=== PATIENT | male | born 1935 | race Caucasian/White ===

== ENCOUNTER → 2016-08-05 | Outpatient (CLI) | payer MEDICARE ==
[~2016-08-05] MED LIST: ALN70T; ASP81CT; ASP81TEC PO; CA C1TAB26 PO; CLD600T; CLOP75TA; CYCL5TAB11 PO; D50KC; DABI150C2 PO; DOXY100C2 PO; ENAL2.5T PO; FURO20TA4; GLUC500T10 PO; KCL10CCR; KCL20TCR PO; LVT.025T PO; MTP25TSR; OMG1KC; OMG1KC PO; PNT40TEC PO; PRD20T PO; SIMV20TA3; UBID50CA; UNITHROID; VIT1TABL56; [UNRECOGNIZED DRUG - OTHER]
--- OUTSIDE RECORDS SUMMARY | 2016-08-05 10:15 | XMS REPORT | Continuity of Care Document ---
Author Author [facility] Organization [facility] Address Unknown Phone Unavailable Care Team Providers Care Traffic Circuit Engineer Name Role Phone JORGE COYLE MD PCP Insurance Providers Payer Name Policy Number Subscriber Name Relationship Wps Medicare [id number] NirmalThuy Connolly 18 Self / Same As Patient Blue [employer] [place] Supp [id number] Thuy Agrawal 18 Self / Same As Patient Advance Directives Directive Response Recorded Date/Time Advance Directives Yes 09/26/13 7:02pm Health Care Power of Manager Med Surg No 09/26/13 7:02pm Organ Donor No 09/26/13 7:02pm Problems Active Problems Medical Problem Onset Date Status Cervical radiculopathy Unknown Acute Medications Current Home Medications Medication Dose Units Route Directions Days/Qty Instructions Start Date Furosemide (Lasix) 20 Mg 06/18/09 Metoprolol Succinate (Metoprolol Er 25MG) 25 Mg 06/18/09 Simvastatin 20 Mg 06/18/09 [Yordan Men Multivit] 06/18/09 Levothyroxine Sodium (Levothroid) 25 Mcg 3 Each Oral Daily 07/29/11 Fish Oil 1,000 Mg 1,000 Mg Oral Daily 07/29/11 Enalapril Maleate 2.5 Mg 2.5 Mg Oral Daily 07/30/11 Potassium Chloride 20 Meq 1 Each Oral Daily 07/30/11 Aspirin 81 Mg 81 Mg Oral Daily 04/07/13 Doxycycline Hyclate (Vibramycin) 100 Mg 1 Each Oral Twice A Day 20 Past Home Medications Medication Directions Ordered Status [Unithroid] , 04/23/07 Discontinued Alendronate Sodium 70 Mg Tablet, 04/23/07 Discontinued Ergocalciferol 50,000 Unit Capsule, 04/23/07 Discontinued Calcium/Vitamin D 1 Tab Tablet, 04/23/07 Discontinued Aspirin 81 Mg Tablet, 04/23/07 Discontinued Clopidogrel Bisulfate 75 Mg Tablet, 06/18/09 Discontinued Potassium Chloride 10 Meq Capcr, 06/18/09 Discontinued Ubidecarenone 50 Mg Capsule, 06/18/09 Discontinued Glucosamine Hcl 500 Mg Tablet, 500 Mg Oral 07/29/11 Discontinued Pantoprazole Sodium 40 Mg Tablet.dr, 1 Tab Oral Daily 07/30/11 Discontinued Dabigatran Etexilate Mesylate 150 Mg Capsule, 150 Mg Oral Twice A Day Discontinued Cyclobenzaprine Hcl 5 Mg Tablet, 1 Each Oral Q8hr Prn 04/07/13 Discontinued Ca Cmb No.1/Vit D3/B-6/Fa/B12 1 Each Tablet, 1 Each Oral Daily 04/07/13 Discontinued Prednisone 20 Mg Tab, 20 Mg Oral Twice A Day 04/30/13 Discontinued Social History Social History Problem Response Recorded Date/Time Alcohol Use Denies Use 09/26/2013 7:02pm Recreational Drug Use No 09/26/2013 7:02pm Recent Foreign Travel No 03/13/2016 8:31am Hospital Discharge Instructions No hospital discharge instructions. Plan of Care Prescriptions See Medication Section Functional Status No functional status results. Allergies, Adverse Reactions, Alerts Allergen Type Severity Reaction Status Last Updated Sulfa (Sulfonamide Antibiotics) ([id number]) Allergy Unknown Active 21/12 Aspirin Allergy Unknown Active 04/28/07 Immunizations No immunization records. Vital Signs No known vital signs results. Results No known relevant diagnostic tests, laboratory data and/or discharge summary. Procedures No known history of procedures. Encounters Encounter Location Arrival/Admit Date Discharge/Depart Date Attending Provider Discharged Rec[facility]ring [facility] 04/24/16 8:12am 4:00pm CASSIDY LY MD
[2016-08-05 10:51] LABS: ALANINE AMINOTRANSFERASE 20 U/L (0-55); ALBUMIN 4.2 G/DL (3.2-4.5); ANION GAP 8 MMOL/L (5-14); ASPARTATE AMINO TRANSFERASE 22 U/L (5-34); BILIRUBIN,TOTAL 0.8 MG/DL (0.1-1.0); BLOOD UREA NITROGEN 21 MG/DL (7-18); BUN/CREATININE RATIO 20; CALCIUM 8.9 MG/DL (8.5-10.1); CARBON DIOXIDE 24 MMOL/L (21-32); CHLORIDE 108 MMOL/L (98-107); CHOLESTEROL 123 MG/DL (< 200); CREATININE SERUM 1.06 MG/DL (0.60-1.30); DIRECT LDL 74 MG/DL (1-129); GFR ESTIMATED > 60; GLUCOSE 98 MG/DL (70-105); SODIUM 140 MMOL/L (135-145); TOTAL PROTEIN 6.6 G/DL (6.4-8.2); TRIGLYCERIDES 69 MG/DL (<150); VLDL CHOLESTEROL 14 MG/DL (5-40)
[2016-08-05 11:10] LABS: THYROID STIMULATING HORMONE 4.25 UIU/ML (0.35-4.94)
== END ==
LOC: LAB 10:11
PROVIDERS: ATTEND Internal Medicine Cardiovascular Disease
DX: I25.10 Atherosclerotic heart disease of native coronary artery without angina pectoris (principal); I48.0 Paroxysmal atrial fibrillation; E78.2 Mixed hyperlipidemia; I10 Essential (primary) hypertension; M54.9 Dorsalgia, unspecified
CPT/HCPCS: 36415; 80053; 80061; 84443

== ENCOUNTER → 2017-04-29 | Outpatient (CLI) | payer MEDICARE | LOC: WOUNDCARE 09:21 | PROVIDERS: ATTEND Nurse Practitioner | DX: L97.222 Non-pressure chronic ulcer of left calf with fat layer exposed (principal); I87.312 Chronic venous hypertension (idiopathic) with ulcer of left lower extremity | CPT/HCPCS: 11042 ==

== ENCOUNTER → 2017-05-06 | Outpatient (CLI) | payer MEDICARE | LOC: WOUNDCARE 09:19 | PROVIDERS: ATTEND Nurse Practitioner | DX: L97.222 Non-pressure chronic ulcer of left calf with fat layer exposed (principal); I87.312 Chronic venous hypertension (idiopathic) with ulcer of left lower extremity | CPT/HCPCS: 11042 ==

== ENCOUNTER → 2017-05-13 | Outpatient (CLI) | payer MEDICARE | LOC: WOUNDCARE 08:59 | PROVIDERS: ATTEND Nurse Practitioner | DX: L97.222 Non-pressure chronic ulcer of left calf with fat layer exposed (principal); I87.312 Chronic venous hypertension (idiopathic) with ulcer of left lower extremity | CPT/HCPCS: 11042 ==

== ENCOUNTER → 2017-05-15 | Outpatient (CLI) | payer MEDICARE | LOC: WOUNDCARE 08:15 | PROVIDERS: ATTEND Internal Medicine | DX: I87.312 Chronic venous hypertension (idiopathic) with ulcer of left lower extremity (principal); L97.222 Non-pressure chronic ulcer of left calf with fat layer exposed | CPT/HCPCS: 29581 ==

== ENCOUNTER → 2017-05-20 | Outpatient (CLI) | payer MEDICARE | LOC: WOUNDCARE 09:14 | PROVIDERS: ATTEND Nurse Practitioner | DX: I87.312 Chronic venous hypertension (idiopathic) with ulcer of left lower extremity (principal); L97.222 Non-pressure chronic ulcer of left calf with fat layer exposed | CPT/HCPCS: 11042 ==

== ENCOUNTER → 2017-05-27 | Outpatient (CLI) | payer MEDICARE | LOC: WOUNDCARE 09:08 | PROVIDERS: ATTEND Nurse Practitioner | DX: L97.222 Non-pressure chronic ulcer of left calf with fat layer exposed (principal); I87.312 Chronic venous hypertension (idiopathic) with ulcer of left lower extremity | CPT/HCPCS: 11042; 87070; 87075; 87077; 87205 ==

== ENCOUNTER 2017-06-16 10:27 | Outpatient (RCR) | payer MEDICARE ==
[2017-06-03] MEDS: CATHETER FLUSH 10 ML SYR IV PRN ×2 (13:15→13:45)
[2017-06-03] MEDS: CEFEPIME 2 GM/NS 50 ML IVPB IV SCH ×2 (13:15)
[2017-06-03 14:15] VITALS: BP 133/68
[2017-06-04 11:45] VITALS: BP 134/67
[2017-06-04] MEDS: CEFEPIME 2 GM/NS 50 ML IVPB IV SCH ×2 (11:45)
[2017-06-04 12:22] VITALS: BP 134/67
[2017-06-05] MEDS: CEFEPIME 2 GM/NS 50 ML IVPB IV SCH ×2 (11:12)
[2017-06-05] MEDS: CATHETER FLUSH 10 ML SYR IV PRN (11:13)
[2017-06-05 11:45] VITALS: BP 121/60
--- NOTE | 2017-06-05 13:03 | Physician Query-Final Dx ---
Clinic Account Progress/Dx Physician Query: Please give diagnosis Date of Service Jun 05, 2017 at 10:57 ALLISON WESLEY Jun 05, 2017 13:03
[2017-06-06 10:33] VITALS: BP 132/64
[2017-06-06] MEDS: CEFEPIME 2 GM/NS 50 ML IVPB IV SCH ×2 (10:38)
[2017-06-07] MEDS: CATHETER FLUSH 10 ML SYR IV PRN ×2 (09:49→10:20)
[2017-06-07] MEDS: CEFEPIME 2 GM/NS 50 ML IVPB IV SCH ×2 (09:50)
[2017-06-07 10:30] VITALS: BP 133/63
[2017-06-08] MEDS: CATHETER FLUSH 10 ML SYR IV PRN ×2 (09:49→10:20)
[2017-06-08] MEDS: CEFEPIME 2 GM/NS 50 ML IVPB IV SCH ×2 (09:50)
[2017-06-08 10:30] VITALS: BP 103/68
[2017-06-09] MEDS: CEFEPIME 2 GM/NS 50 ML IVPB IV SCH ×2 (09:54)
[2017-06-09] MEDS: CATHETER FLUSH 10 ML SYR IV PRN (09:55)
[2017-06-09 09:58] VITALS: BP 111/74
[2017-06-09 10:23] VITALS: BP 111/74
[2017-06-10] MEDS: CATHETER FLUSH 10 ML SYR IV PRN ×2 (10:54→11:25)
[2017-06-10] MEDS: CEFEPIME 2 GM/NS 50 ML IVPB IV SCH ×2 (10:55)
[2017-06-10 11:30] VITALS: BP 132/69
[2017-06-11] MEDS: CEFEPIME 2 GM/NS 50 ML IVPB IV SCH ×2 (10:47)
[2017-06-11 10:50] VITALS: BP 124/79
[2017-06-11 11:17] VITALS: BP 124/79
[2017-06-12] MEDS: CEFEPIME 2 GM/NS 50 ML IVPB IV SCH ×2 (11:14)
[2017-06-12 11:16] VITALS: BP 124/81
[2017-06-13] MEDS: CATHETER FLUSH 10 ML SYR IV PRN (10:26)
[2017-06-13] MEDS: CEFEPIME 2 GM/NS 50 ML IVPB IV SCH ×2 (10:26)
[2017-06-13 10:57] VITALS: BP 132/66
[2017-06-14] MEDS: CATHETER FLUSH 10 ML SYR IV PRN ×2 (09:54→10:28)
[2017-06-14] MEDS: CEFEPIME 2 GM/NS 50 ML IVPB IV SCH ×2 (09:55)
[2017-06-14 10:29] VITALS: BP 104/59
[2017-06-15] MEDS: CATHETER FLUSH 10 ML SYR IV PRN ×2 (09:45→10:19)
[2017-06-15] MEDS: CEFEPIME 2 GM/NS 50 ML IVPB IV SCH ×2 (09:46)
[2017-06-15 10:20] VITALS: BP 118/64
[~2017-06-16] VITALS: Ht 188 cm; Wt 107.0 kg
[2017-06-16] MEDS: CATHETER FLUSH 10 ML SYR IV PRN (10:32)
[2017-06-16] MEDS: CEFEPIME 2 GM/NS 50 ML IVPB IV SCH ×2 (10:32)
[2017-06-16 11:10] VITALS: BP 121/70
== END 2017-09-01 | disposition home or self-care (01) ==
LOC: SDC 10:27
PROVIDERS: ATTEND Nurse Practitioner
DX: L97.222 Non-pressure chronic ulcer of left calf with fat layer exposed (principal); I87.312 Chronic venous hypertension (idiopathic) with ulcer of left lower extremity
CPT/HCPCS: 76937; 96365; 99211

== ENCOUNTER 2018-02-24 06:10 | Outpatient (CLI) | payer MEDICARE ==
[~2018-02-24] VITALS: Ht 188 cm; Wt 107.0 kg
[2018-02-24] MEDS ORDERED: POTA20TA15 PO (09:50)
[2018-02-24] MEDS ORDERED: ENAL2.5T PO (09:50)
[2018-02-24] MEDS ORDERED: MULT-517 PO (09:50)
[2018-02-24] MEDS ORDERED: LEVO100T7 PO (09:50)
[2018-02-24] MEDS ORDERED: METO-387 PO (09:50)
[2018-02-24] MEDS ORDERED: FURO20TA4 PO (09:50)
[2018-02-24] MEDS ORDERED: OMG1KC PO (09:50)
[2018-02-24] MEDS ORDERED: CHOL100045 PO (09:50)
[2018-02-24] MEDS ORDERED: ASPI-999 PO (09:50)
[2018-02-24] MEDS ORDERED: SIMV20TA3 PO (09:50)
== END 2018-02-24 09:52 | disposition home or self-care (01) ==
LOC: PREOP 06:10
PROVIDERS: ATTEND Surgery
DX: Z01.818 Encounter for other preprocedural examination (principal)

== ENCOUNTER 2018-02-25 11:13 | Day surgery (SDC) | payer MEDICARE ==
[~2018-02-25] VITALS: Ht 188 cm; Wt 107.0 kg
[~2018-02-25 11:13] MED LIST changes: +ASPI-999 PO; +CHOL100045 PO; +FURO20TA4 PO; +LEVO100T7 PO; +METO-387 PO; +MULT-517 PO; +POTA20TA15 PO; +SIMV20TA3 PO
--- NOTE | 2018-02-25 11:53 | Conscious Sedation/ASA ---
Conscious Sedation Pre-Proced Time Reviewed: 11:40 ASA Class: 2 Airway Mallampati Classification: ([place] appropriate class) I. II. III, IV Lungs Heart ASA score ASA 1: a normal healthy patient ASA 2: a patient with a mild systemic disease (mid diabetes, controlled hypertension, obesity ASA 3: a patient with a severe systemic disease that limits activity (angina , COPD, prior Myocardial infarction) ASA 4: a patient with an incapacitating disease that is a constant threat to life (CHF, renal failure) ASA 5: a moribund patient not expected to survive 24 hrs. (ruptured aneurysm) ASA 6: a declared brain patient whose organs are being harvested. For emergent operations, add the letter E after the classification Grade 2 Sedation Plan: Analgesia, Amnesia, Plan communicated to team members, Discussed options with patient/fam, Discussed risks with patient/fam Note The patient is an appropriate candidate to undergo the planned procedure, sedation, and anesthesia. The patient immediately re-assessed prior to indication. DAVID FRANCES MD Feb 25, 2018 11:53 am
--- NOTE | 2018-02-25 11:54 | Progress Note-Pre Operative ---
Pre-Operative Progress Note H&P Reviewed The H&P was reviewed, patient examined and no changes noted. Date Seen by Provider: Feb 25, 2018 Time Seen by Provider: 11:40 Date H&P Reviewed: Feb 25, 2018 Time H&P Reviewed: 11:40 Pre-Operative Diagnosis: hx polyp DAVID FRANCES MD Feb 25, 2018 11:54 am
[2018-02-25 11:55] VITALS: BP 115/71
[2018-02-25] MEDS ORDERED: NS IV 500 ML 500 ML ONE ×2 (11:59→13:54)
[2018-02-25] MEDS ORDERED: ONDANSETRON 4 MG/2 ML (SDV) Z0FRAN IV PRN (12:00)
[2018-02-25] MEDS: NS IV 500 ML 500 ML IV PRN ×2 (12:00→13:55)
[2018-02-25] MEDS ORDERED: ACETAMINOPHEN 325 MG TABLET PO PRN (12:00)
[2018-02-25] MEDS ORDERED: HYDROcodone/APAP 5 MG/325 MG (LORTAB) TAB PO PRN (12:00)
[2018-02-25] MEDS ORDERED: morphine INJ 10 MG/ML 1ML (SYR OR VIAL) IV PRN (12:00)
[2018-02-25] MEDS ORDERED: fentaNYL INJECTION 100 MCG/2 ML AMP IVP ONE (12:15)
[2018-02-25] MEDS ORDERED: MIDAZOLAM 2 MG/2 ML (VERSED) VIAL IVP ONE (12:15)
[2018-02-25] MEDS ORDERED: fentaNYL INJECTION 100 MCG/2 ML AMP ONE ×2 (13:21)
[2018-02-25] MEDS ORDERED: LIDOCAINE JELLY 2% (XYLOCAINE) 5 ML TUBE ONE (13:21)
--- NOTE | 2018-02-25 14:11 | Progress Note-Post Operative ---
Post-Operative Progess Note Surgeon (s)/Whipper (s) Surgeon DAVID FRANCES MD Whipper: none Pre-Operative Diagnosis hx polyp Post-Operative Diagnosis chronic stage 2 ext and int hemorrhoids, mild sigmoid diverticulosis. Procedure & Operative Findings Date of Procedure 02/25/18 Procedure Performed/Findings Colonoscopy. Anesthesia Type CS Estimated Blood Loss Estimated blood loss (mL): minimal Specimens/Packing Specimens Removed none DAVID FRANCES MD Feb 25, 2018 2:11 pm
--- NOTE | 2018-02-25 14:12 | Discharge Inst-Surgical ---
D/C Lap Instructions-JUAN DANIEL Follow Up 10 years. Activity as tolerated High Fiber Diet 25g or more per day Avoid Alcohol, Caffeine, Spicy [place] and Acid foods. Drink 64 fluid oz or more of fluids per day. Symptoms to Report: Fever over 101 degree F, Nausea/Vomiting If any problems/questions: Contact your physician or go to Emergency Room DAVID FRANCES MD Feb 25, 2018 2:12 pm
[2018-02-25] MEDS ORDERED: LIDOCAINE JELLY 2% (XYLOCAINE) 5 ML TUBE TOP ONE (14:30)
[2018-02-25 14:35] VITALS: BP 103/55
[2018-02-25 15:05] VITALS: BP 114/66
[2018-02-25 15:35] VITALS: BP 114/66
--- NOTE | 2018-02-25 15:54 | OPERATIVE REPORT ---
DATE OF SERVICE: 02/25/2018 ATTENDING PRIMARY CARE PHYSICIAN: Dr. Garcia. PREOPERATIVE DIAGNOSIS: History of colon polyp. POSTOPERATIVE DIAGNOSES: Chronic stage II external and internal hemorrhoids, moderate sigmoid diverticulosis. PROCEDURE: Colonoscopy. SURGEON: David Frances MD ANESTHESIA: Conscious sedation. ESTIMATED BLOOD LOSS: Minimal. FINDINGS: Chronic stage II external and internal hemorrhoids, not actively edematous nor inflamed and no bleeding. Prostate gland was palpable and appeared normal. There was a moderate sigmoid diverticulosis with no mucosal inflammatory change to indicate any active diverticulitis. The remainder of the colon was normal. There were no polyps identified. DISPOSITION: The patient tolerated the procedure well. INDICATIONS: The patient is an 82-year-old male in need of followup colonoscopy. He has had 3 colonoscopies in the past with his last one done approximately 5 years ago. He reports that that one was normal; however, in 2008, he did have a polyp identified, removed and found to be an adenomatous benign polyp. He states that he is doing well and does not report any major issues with diarrhea nor constipation as well as no red blood per rectum nor any dark tarry stools. He does not report any family history of colon cancer. DESCRIPTION OF PROCEDURE: The patient was brought the endoscopy suite, laid in the left lateral decubitus position. After adequate IV pain and sedative medications and conscious sedation anesthesia, a digital rectal examination was performed. Chronic stage II external and internal hemorrhoids were identified, which were not actively edematous nor inflamed and no bleeding. Normal sphincter tone felt and there were no palpable masses. Prostate gland was palpable and appeared normal. The endoscope was then intubated to the anus and rectum gently insufflated. The endoscope was then advanced to the valves of [place] of the rectum with no polyps or any neoplasms identified. The endoscope was then advanced to the sigmoid colon where a moderate sigmoid diverticulosis identified. There were no mucosal inflammatory changes to indicate any active diverticulitis. The endoscope was then advanced to the remainder of the descending, transverse and ascending colon to the cecum. These segments were normal. There were no polyps or any neoplasms identified throughout the colon or rectum. The endoscope was then slowly withdrawn with taking a second look and suctioning of residual air with no additional findings. The patient tolerated the procedure well. We will recommend a high fiber diet with at least 30 grams of fiber per day as well as copious amounts of water to promote soft stools on a daily basis. He does not need another colonoscopy for another 10 years. Job ID: [id number] DocumentID: [id number] Dictated Date: 02/25/2018 14:04:51 Papier Mache' Molder Date: 02/25/2018 15:53:13 Dictated By: DAVID FRANCES MD
== END 2018-02-25 15:35 | disposition home or self-care (01) ==
LOC: ENDO 11:13
PROVIDERS: ATTEND Surgery
DX: Z12.11 Encounter for screening for malignant neoplasm of colon (principal); K57.30 Diverticulosis of large intestine without perforation or abscess without bleeding; K64.1 Second degree hemorrhoids; Z86.010 Personal history of colon polyps; I25.10 Atherosclerotic heart disease of native coronary artery without angina pectoris; I73.9 Peripheral vascular disease, unspecified; I87.2 Venous insufficiency (chronic) (peripheral); I10 Essential (primary) hypertension; E78.5 Hyperlipidemia, unspecified; E03.9 Hypothyroidism, unspecified; N40.0 Benign prostatic hyperplasia without lower urinary tract symptoms; M85.80 Other specified disorders of bone density and structure, unspecified site; Z79.82 Long term (current) use of aspirin; Z79.899 Other long term (current) drug therapy

== ENCOUNTER → 2018-10-23 | Outpatient (CLI) | payer MEDICARE | LOC: CARD 09:42 | PROVIDERS: ATTEND Internal Medicine Cardiovascular Disease | DX: I25.10 Atherosclerotic heart disease of native coronary artery without angina pectoris (principal); I77.9 Disorder of arteries and arterioles, unspecified; I10 Essential (primary) hypertension; E78.5 Hyperlipidemia, unspecified; I48.0 Paroxysmal atrial fibrillation; I08.0 Rheumatic disorders of both mitral and aortic valves | CPT/HCPCS: 93306 ==

== ENCOUNTER 2020-07-25 10:23 | Emergency (ER) | payer MEDICARE ==
[~2020-07-25] VITALS: Ht 187.9 cm; Wt 105.9 kg
[~2020-07-25 10:23] MED LIST changes: +ENLP2.5T PO; -METO-387 PO; +MTP25TSR PO; +SIMV20TA26 PO; -SIMV20TA3 PO
--- NOTE | 2020-07-25 11:56 | ED Integumentary General ---
General Chief Complaint: Skin/Wound Problems Stated Complaint: LEG WOUND, DIARRHEA, N/V Nursing Triage Note: AMB TO ED WITH SON REPORTS HAS HAD A LEG WOUND THAT HAS TREATED BY DR AT [facility] NOW CONCERN THAT HAS AREA ON ANKLE HAS BEEN CEFEPIME 2 GRAMS BIS FOR LAST 2 WEEK. STARTING TO HAVE DIARRHEA. Source: patient Exam Limitations: no limitations History of Present Illness Date Seen by Provider: Jul 25, 2020 Time Seen by Provider: 11:53 Initial Comments To ER by private vehicle accompanied by son with reports of nausea vomiting diarrhea. He has a chronic wound on the right lower extremity for which he is seeing wound care at [facility] in [place]. 1 of these wounds is infected and for that reason he has a PICC line and is receiving cefepime twice a day. Over the past few days he has developed nausea vomiting and very loose stools. Timing/Duration: constant Severity: moderate Possible Cause: no cause identified Associated Symptoms: denies symptoms Allergies and Home Medications Allergies Coded Allergies: Sulfa (Sulfonamide Antibiotics) (Verified Allergy, Unknown, 02/24/18) aspirin (Verified Allergy, Unknown, 02/24/18) Home Medications Aspirin 81 Mg Tab.chew, 81 MG PO DAILY, (Reported) Cholecalciferol (Vitamin D3) 1,000 Unit Tablet, 1,000 UNIT PO DAILY, (Reported) Enalapril Maleate 2.5 Mg Tablet, 2.5 MG PO DAILY, (Reported) Furosemide 20 Mg Tablet, 20 MG PO DAILY, (Reported) Levothyroxine Sodium 100 Mcg Tablet, 100 MCG PO DAILY, (Reported) Metoprolol Succinate 25 Mg Tab.er.24h, 25 MG PO DAILY, (Reported) Multivitamin 1 Each Tablet, 1 EACH PO DAILY, (Reported) [place] 3 Polyunsat Fatty Acids 1,000 Mg Cap, 1,000 MG PO DAILY, (Reported) Potassium Chloride 20 Meq Tab.er.prt, 20 MEQ PO DAILY, (Reported) Simvastatin 20 Mg Tablet, 20 MG PO DAILY, (Reported) Patient Home Medication List Home Medication List Reviewed: Yes Review of Systems Review of Systems Constitutional: see HPI; No chills, No fever EENTM: see HPI Respiratory: no symptoms reported Cardiovascular: no symptoms reported Gastrointestinal: abdominal pain, diarrhea, nausea, vomiting Genitourinary: no symptoms reported Musculoskeletal: no symptoms reported Skin: no symptoms reported Psychiatric/Neurological: No Symptoms Reported Endocrine: No Symptoms Reported Past Prwhgob-Ptxyen-Umuglk Hx Patient Social History Alcohol Use: Denies Use Smoking Status: Never a Smoker Former Smoker, Quit: Feb 24, 1965 Recent Infectious Disease Expo: No Recent Hopitalizations: No Immunizations Up To Date Tetanus Booster (TDap): Unknown PED Vaccines UTD: No Date of Pneumonia Vaccine: Apr 23, 2007 Date of Influenza Vaccine: Mar 24, 2017 Seasonal Allergies Seasonal Allergies: No Past Medical History Surgeries: Yes (BILAT INGUINAL HERNIA REPAIRS,X3 HEART CATHS, NON- INTERVENTIONAL) Appendectomy Respiratory: No Cardiac: Yes High Cholesterol, Hypertension, Peripheral Vascular Neurological: No Reproductive Disorders: No Sexually Transmitted Disease: No HIV/AIDS: No Gastrointestinal: No Musculoskeletal: No Endocrine: Yes Hypothyroidsim Loss of Vision: Bilateral Cancer: No Psychosocial: No Integumentary: No Recent Skin Changes Blood Disorders: No Adverse Reaction/Blood Tranf: No (N/A) Physical Exam Vital Signs Vital Signs - First Documented 07/25/20 10:30 Temp 36.4 Pulse 74 Resp 18 B/P (MAP) 119/67 (84) Pulse Ox 97 O2 Delivery Room Air Capillary Refill : Less Than 3 Seconds General Appearance: WD/WN, no apparent distress HEENT: PERRL/EOMI, normal ENT inspection Neck: non-tender, full range of motion Respiratory: no respiratory distress, no accessory muscle use Gastrointestinal: normal bowel sounds, soft, tenderness (Right-sided) Neurologic/Psychiatric: alert, normal mood/affect, oriented x 3 Skin: normal color, warm/dry Comments Right leg is wrapped in an Unna boot. He states this dressing is changed about once a week he states this dressing is changed and this 1 has been on for nearly a week. 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 No open wounds or open areas. This was covered with gauze and Cob[place]. Progress/Results/Core Measures Results/Orders Lab Results Laboratory Tests Test 07/25/20 11:52 07/25/20 12:03 Range/Units Urine Color YELLOW Urine Clarity CLEAR Urine pH 6.0 5-9 Urine Specific [place] 1.015 L 1.016-1.022 Urine Protein 1+ H NEGATIVE Urine Glucose (UA) NEGATIVE NEGATIVE Urine Ketones NEGATIVE NEGATIVE Urine Nitrite NEGATIVE NEGATIVE Urine Bilirubin NEGATIVE NEGATIVE Urine Urobilinogen 0.2 < = 1.0 MG/DL Urine Leukocyte Esterase NEGATIVE NEGATIVE Urine RBC (Auto) 2+ H NEGATIVE Urine RBC 2-5 H /HPF Urine WBC 0-2 /HPF Urine Squamous Epithelial Cells 0-2 /HPF Urine Crystals PRESENT H /LPF Urine Amorphous Sediment FEW [place] URATES H /LPF Urine Bacteria NEGATIVE /HPF Urine Casts PRESENT /LPF Urine Hyaline Casts 0-2 H /LPF Urine Mucus NEGATIVE /LPF Urine Culture Indicated NO White Blood Count 17.1 H 4.3-11.0 10^3/uL Red Blood Count 4.85 4.30-5.52 10^6/uL Hemoglobin 14.5 13.3-17.7 g/dL Hematocrit 43 40-54 % Mean Corpuscular Volume 88 80-99 fL Mean Corpuscular Hemoglobin 30 25-34 pg Mean Corpuscular Hemoglobin Concent 34 32-36 g/dL Red Cell Distribution Width 13.2 10.0-14.5 % Platelet Count 160 130-400 10^3/uL Mean Platelet Volume 9.6 9.0-12.2 fL Immature Granulocyte % (Auto) 1 % Neutrophils (%) (Auto) 77 H 42-75 % Lymphocytes (%) (Auto) 14 12-44 % Monocytes (%) (Auto) 6 0-12 % Eosinophils (%) (Auto) 2 0-10 % Basophils (%) (Auto) 0 0-10 % Neutrophils # (Auto) 13.2 H 1.8-7.8 10^3/uL Lymphocytes # (Auto) 2.4 1.0-4.0 10^3/uL Monocytes # (Auto) 1.0 0.0-1.0 10^3/uL Eosinophils # (Auto) 0.4 H 0.0-0.3 10^3/uL Basophils # (Auto) 0.1 0.0-0.1 10^3/uL Immature Granulocyte # (Auto) 0.1 0.0-0.1 10^3/uL Neutrophils % (Manual) 79 % Lymphocytes % (Manual) 10 % Monocytes % (Manual) 4 % Eosinophils % (Manual) 3 % Basophils % (Manual) 1 % Band Neutrophils 3 % Blood Morphology Comment NORMAL Sodium Level 132 L 135-145 MMOL/L Potassium Level 4.3 3.6-5.0 MMOL/L Chloride Level 101 98-107 MMOL/L Carbon Dioxide Level 18 L 21-32 MMOL/L Anion Gap 13 5-14 MMOL/L Blood Urea Nitrogen 24 H 7-18 MG/DL Creatinine 1.21 0.60-1.30 MG/DL Estimat Glomerular Filtration Rate 57 BUN/Creatinine Ratio 20 Glucose Level 117 H 70-105 MG/DL Calcium Level 8.5 8.5-10.1 MG/DL Corrected Calcium 8.9 8.5-10.1 MG/DL Total Bilirubin 0.8 0.1-1.0 MG/DL Aspartate Amino Transf (AST/SGOT) 21 5-34 U/L Alanine Aminotransferase (ALT/SGPT) 18 0-55 U/L Alkaline Phosphatase 58 40-136 U/L Total Protein 6.5 6.4-8.2 GM/DL Albumin 3.5 3.2-4.5 GM/DL Micro Results Microbiology 07/25/20 C. difficile GDH Antigen & Toxins - Final, Complete My Orders Orders - CHANDLER DELGADO APRN C Difficile Ag + Toxin A/B. (07/25/20 11:48) Ua Culture If Indicated (07/25/20 11:48) Cbc With Automated Diff (07/25/20 11:48) Comprehensive Metabolic Panel (07/25/20 11:48) Ed Iv/Invasive Line Start (07/25/20 11:48) Ct Abdomen/Pelvis Wo (07/25/20 11:48) Hyoscyamine Sl Tablet (Levsin Sl Tablet) (07/25/20 12:00) Ondansetron Injection (Zofran Injectio (07/25/20 12:00) Lactated Ringers (Lr 1000 Ml Iv Solution (07/25/20 12:00) Manual Differential (07/25/20 12:03) Fentanyl Injection (Sublimaze Injection (07/25/20 13:00) Medications Given in ED Current Medications Medications Dose Ordered Sig/[place] Route Start Time Stop Time Status Last Admin Dose Admin Fentanyl Citrate 50 mcg ONCE ONCE IVP 07/25/20 13:00 07/25/20 13:01 DC 07/25/20 13:01 50 MCG Hyoscyamine Sulfate 0.125 mg ONCE ONCE PO 07/25/20 12:00 07/25/20 12:01 DC 07/25/20 12:12 0.125 MG Ondansetron HCl 8 mg ONCE ONCE IVP 07/25/20 12:00 07/25/20 12:01 DC 07/25/20 12:14 8 MG Vital Signs/I&O 07/25/20 10:30 Temp 36.4 Pulse 74 Resp 18 B/P (MAP) 119/67 (84) Pulse Ox 97 O2 Delivery Room Air Blood Pressure Mean: 84 Departure Communication (Admissions) 1230-Spoke with Dr. Wu, given the absence of sepsis recommends outpatient treatment with oral vancomycin. I discussed the plan with the patient and he would also prefer outpatient treatment. [facility] does not have the 125 mg oral vancomycin nor does [facility]. I called [facility] and they do. I called in vancomycin 125 4 times daily #40 and Zofran ODT 8 mg as needed nausea vomiting #30. Given that his ulcer infection is confined to a silver dollar sized area on his leg and he is without systemic symptoms I think we should stop the IV cefepime. He states he only has about 3 days left. Impression Primary Impression: C. difficile colitis Additional Impression: Nausea & vomiting Disposition: HOME, SELF-CARE Condition: Stable Departure-Patient Inst. Decision time for Depature: 13:13 Referrals: JORGE COYLE MD (PCP/Family) Primary Care Physician Patient Instructions: Clostridioides difficile (DC), Colitis (DC) Add. Discharge Instructions: 1. Drink plenty of liquid. Pedialyte or water are good choices. Start with a mild diet such as bananas rice applesauce and toast. Return to ER for any fevers worsening pain or other concerns. Take the antibiotic every 6 hours for 10 days as directed. Stop the cefepime IV infusions. Follow-up with your doctor about CT scan which shows some mild bladder wall thickening. They may wish to refer you to urology for a bladder scope. I called your antibiotics into [facility] because neither [facility] no [facility] had the oral vancomycin All discharge instructions reviewed with patient and/or family. Voiced understanding. Copy Copies To 1: JORGE COYLE MD, PETER J APRN Jul 25, 2020 11:56
[2020-07-25 11:58] LABS: BILIRUBIN,URINE NEGATIVE (NEGATIVE); CLARITY,URINE CLEAR; COLOR,URINE YELLOW; GLUCOSE, URINE (UA) NEGATIVE (NEGATIVE); KETONES,URINE NEGATIVE (NEGATIVE); LEUKOCYTE ESTERASE ,URINE NEGATIVE (NEGATIVE); NITRITE,URINE NEGATIVE (NEGATIVE); PROTEIN,URINE 1+ (NEGATIVE)
[2020-07-25] MEDS ORDERED: LACTATED RINGERS 1,000 ML IV SCH (12:00)
[2020-07-25] MEDS ORDERED: ONDANSETRON 4 MG/2 ML (SDV) Z0FRAN IVP ONE (12:00)
[2020-07-25] MEDS ORDERED: HYOSCYAMINE 0.125 MG (LEVSIN) TAB PO ONE (12:00)
[2020-07-25 12:09] LABS: BASOPHILS # (AUTO) 0.1 10^3/uL (0.0-0.1); BASOPHILS % (AUTO) 0 % (0-10); EOSINOPHILS # (AUTO) 0.4 10^3/uL (0.0-0.3); EOSINOPHILS % (AUTO) 2 % (0-10); HEMATOCRIT 43 % (40-54); HEMOGLOBIN 14.5 g/dL (13.3-17.7); LYMPHOCYTES # (AUTO) 2.4 10^3/uL (1.0-4.0); LYMPHOCYTES % (AUTO) 14 % (12-44); MEAN CORPUSCULAR HEMOGLOBIN 30 pg (25-34); MEAN CORPUSCULAR HGB CONC 34 g/dL (32-36); MEAN CORPUSCULAR VOLUME 88 fL (80-99); MEAN PLATELET VOLUME 9.6 fL (9.0-12.2); MONOCYTES % (AUTO) 6 % (0-12); NEUTROPHILS # (AUTO) 13.2 10^3/uL (1.8-7.8); NEUTROPHILS % (AUTO) 77 % (42-75); PLATELET COUNT 160 10^3/uL (130-400); WHITE BLOOD COUNT 17.1 10^3/uL (4.3-11.0)
[2020-07-25 12:22] LABS: ALBUMIN 3.5 GM/DL (3.2-4.5); POTASSIUM 4.3 MMOL/L (3.6-5.0)
[2020-07-25 12:23] LABS: CALCIUM 8.5 MG/DL (8.5-10.1)
[2020-07-25 12:23] LABS: WBC,URINE 0-2 /HPF
[2020-07-25 12:24] LABS: TOTAL PROTEIN 6.5 GM/DL (6.4-8.2)
[2020-07-25 12:24] LABS: AMORPHOUS SEDIMENT,UR FEW AMOR URATES /LPF; BACTERIA,URINE NEGATIVE /HPF; HYALINE CASTS, URINE 0-2 /LPF; SQUAMOUS EPITHELIAL CELL,UR 0-2 /HPF
[2020-07-25 12:26] LABS: BILIRUBIN,TOTAL 0.8 MG/DL (0.1-1.0)
[2020-07-25 12:28] LABS: CREATININE SERUM 1.21 MG/DL (0.60-1.30)
[2020-07-25 12:30] LABS: BAND NEUTROPHILS 3 %; BASOPHILS % (MANUAL) 1 %; EOSINOPHILS % (MANUAL) 3 %; LYMPHOCYTES % (MANUAL) 10 %; MONOCYTES % (MANUAL) 4 %; NEUTROPHILS % (MANUAL) 79 %; RBC MORPH NORMAL
--- NOTE | 2020-07-25 12:42 | Diagnostic Imaging Report ---
EXAMINATION: CT Abdomen Pelvis without contrast. TECHNIQUE: Multiple contiguous axial images were obtained through the abdomen and pelvis without the use of intravenous contrast. All CT scans use one or more of the following dose optimizing techniques: automated exposure control, MA and/or KvP adjustment based on a patient size and exam type, or iterative reconstruction. HISTORY: Right-sided abdominal pain. COMPARISON: None available. FINDINGS: Lung bases: The lung bases are clear. Solid organs: The liver is normal. The gallbladder is normal. There is no biliary ductal dilation. Pancreas is normal. Spleen is normal. Adrenal glands are normal. The kidneys are normal without visualized calculus or hydronephrosis. Bowel: The stomach and small bowel are normal without obstruction. A duodenal diverticulum is present. There are a few colonic diverticula. There is diffuse wall thickening and surrounding inflammatory stranding of the colon. No findings of acute appendicitis. Peritoneum: There is no intraperitoneal free fluid or free air. No suspicious lymphadenopathy. Vasculature: Normal without aneurysm. Musculoskeletal: Degenerative changes of the spine without suspicious osseous lesion or compression fracture. Pelvis: The prostate gland is enlarged. Diffuse bladder wall thickening. IMPRESSION: 1. Diffuse wall thickening and inflammatory stranding of the colon. This finding is concerning for infectious or inflammatory pancolitis. C. difficile infection could have this appearance given the history of antibiotics. 2. Diffuse bladder wall thickening. Recommend correlation with urinalysis. Dictated by: Dictated on workstation # [id number]
[2020-07-25] MEDS ORDERED: fentaNYL INJECTION 100 MCG/2 ML AMP IVP ONE (13:00)
[2020-07-25 14:06] VITALS: BP 129/71
== END 2020-07-25 14:06 | disposition home or self-care (01) ==
LOC: EDUNIT# 10:23 → ER 10:26
DX: A04.72 Enterocolitis due to Clostridium difficile, not specified as recurrent (principal); I10 Essential (primary) hypertension; E78.00 Pure hypercholesterolemia, unspecified; E03.9 Hypothyroidism, unspecified; Z79.82 Long term (current) use of aspirin; Z79.890 Hormone replacement therapy; Z88.2 Allergy status to sulfonamides; Z88.6 Allergy status to analgesic agent
CPT/HCPCS: 36415; 74176; 80053; 81000; 85007; 85027; 87324; 87449

== ENCOUNTER 2020-09-11 10:42 | Emergency (ER) | payer MEDICARE ==
[~2020-09-11] VITALS: Ht 185 cm; Wt 101.0 kg
--- NOTE | 2020-09-11 11:01 | ED Fall/Injury ---
General Chief Complaint: Trauma-Non Activation Stated Complaint: LOWER BACK PAIN-FELL Nursing Triage Note: PT AMB TO ROOM 6 PT CO OF FALL ON BACK FRIDAY EVENING HAS PAIN MID TO LOW BACK, PT USING CANE TO WALK. PT DENIES NUMBNESS OR TINGLING AT THIS X.DENIES ANY OTHER INJURIES FROM FALL Source: patient Exam Limitations: no limitations History of Present Illness Date Seen by Provider: Sep 11, 2020 Time Seen by Provider: 10:53 Initial Comments Here with report of fall 2 days ago landing on his buttocks and complaining of mid to low back pain. He is able to ambulate with the assistance of a walking cane. Denies bowel or bladder incontinence, numbness between his legs or weakness. Pain is across both sides of the lower back and begins at the low thoracic region and worsens into the upper lumbar region. Denies hip pain. Denies hitting head on fall. He is not on blood thinners. Denies headache, vision or balance problems or weakness. Pain is better with Naprosyn and heating pads. Occurred: other (2 days ago) Severity: moderate Injuries/Pain Location: back Context: tripped Loss of Consciousness: no loss of consciousness Modifying Factors: Improves With Immobilization; Worse With Movement; Improves With Pain Medication Associated Symptoms (Fall): No Abdominal Pain, No Dizziness, No Headache, No Lightheadedness; Muscle Spasms; No Nausea/Vomiting, No Neck Pain, No Vision Changes Allergies and Home Medications Allergies Coded Allergies: Sulfa (Sulfonamide Antibiotics) (Verified Allergy, Unknown, 02/24/18) aspirin (Verified Allergy, Unknown, 02/24/18) Home Medications Aspirin 81 Mg Tab.chew, 81 MG PO DAILY, (Reported) Cholecalciferol (Vitamin D3) 1,000 Unit Tablet, 1,000 UNIT PO DAILY, (Reported) Enalapril Maleate 2.5 Mg Tablet, 2.5 MG PO DAILY, (Reported) Furosemide 20 Mg Tablet, 20 MG PO DAILY, (Reported) Levothyroxine Sodium 100 Mcg Tablet, 100 MCG PO DAILY, (Reported) Metoprolol Succinate 25 Mg Tab.er.24h, 25 MG PO DAILY, (Reported) Multivitamin 1 Each Tablet, 1 EACH PO DAILY, (Reported) [place] 3 Polyunsat Fatty Acids 1,000 Mg Cap, 1,000 MG PO DAILY, (Reported) Potassium Chloride 20 Meq Tab.er.prt, 20 MEQ PO DAILY, (Reported) Simvastatin 20 Mg Tablet, 20 MG PO DAILY, (Reported) Patient Home Medication List Home Medication List Reviewed: Yes Review of Systems Review of Systems Constitutional: see HPI; No chills, No fever Eyes: No Symptoms Reported Ears, Nose, Mouth, Throat: no symptoms reported Respiratory: No cough, No short of breath Cardiovascular: no symptoms reported Gastrointestinal: no symptoms reported Genitourinary: no symptoms reported Musculoskeletal: back pain, joint pain, muscle pain, muscle stiffness; No muscle weakness, No neck pain Past Qczslgq-Xclfui-Mbfwcz Hx Past Med/Social Hx: Reviewed Nursing Past Med/Soc Hx Patient Social History Alcohol Use: Denies Use Smoking Status: Former Smoker Former Smoker, Quit: Feb 24, 1965 Recent Infectious Disease Expo: No Recent Hopitalizations: No Immunizations Up To Date Tetanus Booster (TDap): Unknown PED Vaccines UTD: No Date of Pneumonia Vaccine: Apr 23, 2007 Date of Influenza Vaccine: Mar 24, 2017 Seasonal Allergies Seasonal Allergies: No Past Medical History Surgeries: Yes (BILAT INGUINAL HERNIA REPAIRS,X3 HEART CATHS, NON- INTERVENTIONAL) Appendectomy Respiratory: No Cardiac: Yes High Cholesterol, Hypertension, Peripheral Vascular Neurological: No Reproductive Disorders: No Sexually Transmitted Disease: No HIV/AIDS: No Gastrointestinal: No Musculoskeletal: No Endocrine: Yes Hypothyroidsim Loss of Vision: Bilateral Cancer: No Psychosocial: No Integumentary: No Recent Skin Changes Blood Disorders: No Adverse Reaction/Blood Tranf: No (N/A) Family Medical History Reviewed Nursing Family Hx Physical Exam Vital Signs Vital Signs - First Documented 09/11/20 10:45 Temp 36.2 Pulse 75 Resp 18 B/P (MAP) 158/64 (95) Pulse Ox 98 Capillary Refill : Less Than 3 Seconds Height, Weight, BMI Height: 6'2.00" Weight: 236lbs. 0.0oz. [id number]; 29.00 BMI Method:Stated General Appearance: WD/WN, no apparent distress HEENT: PERRL/EOMI, TMs normal, pharynx normal Neck: full range of motion, supple Cardiovascular: regular rate, rhythm, no murmur Respiratory: lungs clear, normal breath sounds Gastrointestinal: non tender, soft Back: muscle spasm (Paraspinous low thoracic and lumbar region), vertebral tenderness (Low thoracic and upper lumbar region) Neurologic/Psychiatric: alert, oriented x 3; No motor weakness, No sensory deficit Skin: normal color, warm/dry [place] Coma Score Best Eye Response: (4) Open Spontaneously Best Verbal Response: (5) Oriented Best Motor Response: (6) Obeys Commands Progress/Results/Core Measures Results/Orders My Orders Orders - RAMIN DAVIS MD Ct Thoracic/Lumbar Spine Wo (09/11/20 10:59) Hydrocodone/Apap 5/325 Tablet (Lortab 5 (09/11/20 12:15) Orphenadrine Inj (Ed Only) (Norflex Inje (09/11/20 12:03) Medications Given in ED Current Medications Medications Dose Ordered Sig/[place] Route Start Time Stop Time Status Last Admin Dose Admin Acetaminophen/ Hydrocodone Bitart 1 ea ONCE ONCE PO 09/11/20 12:15 09/11/20 12:16 DC 09/11/20 12:10 1 EA Vital Signs/I&O 09/11/20 10:45 Temp 36.2 Pulse 75 Resp 18 B/P (MAP) 158/64 (95) Pulse Ox 98 Blood Pressure Mean: 95 Progress Progress Note : Progress Note Seen and evaluated. CT of the thoracic and lumbar region of spine. We did discuss CT of the head. He has declined at this point. He has normal pupil and TM exam and no obvious significant contusion, abrasion or swelling to the head. Patient denies headache. We will forego CT scan per his decision at this point. Monitor patient. 1232: CT negative for acute bony concerns. Patient had worse pain after returning from CT after difficulty with moving him off the table and he states he was pulled inappropriately. We did give Norflex 60 mg IM and hydro codone 5/325 1 tab p.o. Discharged home with return precautions. Patient verbalized understanding of instructions and agreement with plan. Diagnostic Imaging Diagonstic Imaging: CT Plain Films/CT/US/NM/MRI: other Comments [facility], [place] NAME: THUY AGRAWAL [facility] REC#: [id number] PT STATUS: REG ER : 1935 PHYSICIAN: RAMIN DAVIS MD ADMIT DATE: 09/11/20/ER Draft Date of Exam:09/11/20 CT THORACIC/LUMBAR SPINE WO PROCEDURE: CT thoracic and lumbar spine without contrast. TECHNIQUE: Multiple contiguous axial images were obtained through the thoracic and lumbar spine without the use of intravenous contrast. Sagittal and coronal reformations were then performed.All CT scans use one or more of the following dose optimizing techniques: automated exposure control, MA and/or KvP adjustment based on a patient size and exam type, or iterative reconstruction. INDICATION: Severe back pain following a fall. Comparison: Limited to abdominal pelvic CT 07/25/2020. T-spine: Thoracic statures are normal. The alignment anatomic. No evidence for paravertebral hematoma. No suspicious endplate lucencies. The posterior elements and neural arches intact. The visualized posterior ribs intact. Lumbar spine: Lumbar statures are within normal limits. No acute or suspect endplate irregularity. The neural arch is intact. No fracture and no evidence for paravertebral hemorrhage. No high-grade bony stenosis. The visualized sacrum unremarkable. IMPRESSION: No acute finding at CT thoracic and lumbar spine. Dictated on workstation # [id number] Dict: 09/11/20 1143 Trans: 09/11/20 1149 [facility] [id number] Interpreted by: NICO THOMPSON Electronically signed by: Departure Impression Primary Impression: Lumbar spine strain Qualified Codes: S39.012A - Strain of muscle, fascia and tendon of lower back, initial encounter Additional Impression: Acute thoracic myofascial strain Qualified Codes: S29.019A - Strain of muscle and tendon of unspecified wall of thorax, initial encounter Disposition: 01 HOME, SELF-CARE Condition: Stable Departure-Patient Inst. Decision time for Depature: 12:34 Referrals: JORGE COYLE MD (PCP/Family) Primary Care Physician Patient Instructions: Muscle Strain (DC), Low Back Pain (DC), Upper Back Pain (DC) Add. Discharge Instructions: All discharge instructions reviewed with patient and/or family. Voiced underst anding. Take medications as directed. Follow-up with your doctor in a few days for recheck. Return for worse pain, weakness, numbness between your legs, difficulty with walking or going to the bathroom or other concerns as needed. You may continue your naproxen as previously prescribed. You may take Tylenol/acetaminophen 1000 mg every 6-8 hours as needed for pain but do not take that if you are taking the prescribed pain medicine as they both have acetaminophen in them. Scripts Hydrocodone/Acetaminophen (Hydrocodone-Acetamin 5-325 mg) 1 Each Tablet 1 TAB PO Q6H PRN for PAIN-MODERATE (5-7), #10 TAB 0 Refills Prov: RAMIN DAVIS MD 09/11/20 RAMIN DAVIS MD Sep 11, 2020 11:01
--- NOTE | 2020-09-11 11:51 | Diagnostic Imaging Report ---
PROCEDURE: CT thoracic and lumbar spine without contrast. TECHNIQUE: Multiple contiguous axial images were obtained through the thoracic and lumbar spine without the use of intravenous contrast. Sagittal and coronal reformations were then performed.All CT scans use one or more of the following dose optimizing techniques: automated exposure control, MA and/or KvP adjustment based on a patient size and exam type, or iterative reconstruction. INDICATION: Severe back pain following a fall. Comparison: Limited to abdominal pelvic CT 07/25/2020. T-spine: Thoracic statures are normal. The alignment anatomic. No evidence for paravertebral hematoma. No suspicious endplate lucencies. The posterior elements and neural arches intact. The visualized posterior ribs intact. Lumbar spine: Lumbar statures are within normal limits. No acute or suspect endplate irregularity. The neural arch is intact. No fracture and no evidence for paravertebral hemorrhage. No high-grade bony stenosis. The visualized sacrum unremarkable. IMPRESSION: No acute finding at CT thoracic and lumbar spine. Dictated by: Dictated on workstation # [id number]
[2020-09-11] MEDS ORDERED: ORPHENADRINE 60 MG/2 ML (NORFLEX) AMP (ED ONLY) IM STA (12:03)
[2020-09-11] MEDS ORDERED: HYDROcodone/APAP 5 MG/325 MG (LORTAB) TAB PO ONE (12:15)
[2020-09-11] MEDS ORDERED: ACHD5005 PO (12:37)
[2020-09-11 12:45] VITALS: BP 136/62
== END 2020-09-11 12:45 | disposition home or self-care (01) ==
LOC: EDUNIT# 10:42 → ER 10:44
DX: S39.012A Strain of muscle, fascia and tendon of lower back, initial encounter (principal); S29.019A Strain of muscle and tendon of unspecified wall of thorax, initial encounter; I10 Essential (primary) hypertension; E78.00 Pure hypercholesterolemia, unspecified; E03.9 Hypothyroidism, unspecified; Z87.891 Personal history of nicotine dependence; Z79.82 Long term (current) use of aspirin; Z79.890 Hormone replacement therapy; Z88.2 Allergy status to sulfonamides; Z88.6 Allergy status to analgesic agent; W01.0XXA Fall on same level from slipping, tripping and stumbling without subsequent striking against object, initial encounter
CPT/HCPCS: 72128; 72131

== ENCOUNTER → 2020-10-02 | Outpatient (CLI) | payer MEDICARE ==
[~2020-10-02] MED LIST changes: +ACHD5005 PO
--- NOTE | 2020-10-02 11:57 | Diagnostic Imaging Report ---
PROCEDURE: MRI lumbar spine. TECHNIQUE: Multiplanar, multisequence MRI of the lumbar spine was performed without contrast. INDICATION: Fall. Lower back pain. COMPARISON: None. FINDINGS: For the purposes of this exam, last well-formed disc space is denoted the L5-S1 level. Evaluation of the static alignment demonstrates mild dextroscoliotic deformity epicentered at the L2-L3 level. There is no significant imelda or retrolisthesis. There is no evidence of jumped facets. Evaluation of the vertebral body heights demonstrates approximately 30% height loss of the L1 vertebral body. There is also significant abnormal signal throughout the L1 vertebral body consistent with acute fracture. Fracture line is visualized extending from the inferolateral corner of the vertebral body on the right towards the superolateral corner of the vertebral body on the left. There does appear to be involvement of the posterior wall of the L1 vertebral body with slight posterior buckling. There is however no significant resultant narrowing of the spinal canal. No displaced fracture fragments are seen. There is multilevel intervertebral disc height loss with multilevel anterior and posterior disc bulging. Visualized portions of the distal cord are unremarkable. Conus terminates at approximately the L1 level. No abnormal intrathecal filling defects are seen. Pre and paravertebral soft tissue structures are unremarkable. Axial images demonstrate the following: T12-L1: There is slight broad-based posterior disc bulge and bilateral facet arthropathy. There is however no significant spinal canal or neuroforaminal stenosis. L1-L2: There is no large disc bulge or focal protrusion. There is no significant spinal canal or neuroforaminal stenosis. L2-L3: There is asymmetric left lateral endplate osteophyte formation. This does result in mild asymmetric narrowing of the left neuroforamen. There is also minimal narrowing on the right. Spinal canal is unremarkable. L3-L4: There is slight broad-based posterior disc bulge with asymmetric endplate osteophyte formations laterally on the left. As a result, there is mild narrowing of the spinal canal and right neuroforamen. There is also moderate stenosis on the left. L4-L5: There is broad-based posterior disc bulge with bilateral ligamentum flavum laxity and facet arthropathy. As a result, there is mild narrowing of the spinal canal and left neuroforamen. Moderate stenosis is also seen on the right. L5-S1: There is asymmetric endplate osteophyte formation laterally on the right. This does result in asymmetric moderate stenosis of the right neuroforamen. There is also bilateral facet arthropathy and minimal narrowing of the left neuroforamen. Spinal canal is unremarkable. IMPRESSION: 1. Acute fracture of L1 as described above. Patient may be a candidate for kyphoplasty. 2. Mild multilevel degenerative changes. Dictated by: Dictated on workstation # [id number]
== END ==
LOC: RAD 09:36
PROVIDERS: ATTEND Physician Assistant
DX: S32.019A Unspecified fracture of first lumbar vertebra, initial encounter for closed fracture (principal); M47.816 Spondylosis without myelopathy or radiculopathy, lumbar region; M51.26 Other intervertebral disc displacement, lumbar region; M48.061 Spinal stenosis, lumbar region without neurogenic claudication; M25.78 Osteophyte, vertebrae
CPT/HCPCS: 72148

== ENCOUNTER → 2020-12-05 | Outpatient (CLI) | payer MEDICARE | LOC: CARD 13:15 | PROVIDERS: ATTEND Internal Medicine Cardiovascular Disease | DX: I35.1 Nonrheumatic aortic (valve) insufficiency (principal); I10 Essential (primary) hypertension; I25.10 Atherosclerotic heart disease of native coronary artery without angina pectoris | CPT/HCPCS: 93306 ==

== ENCOUNTER 2022-07-11 03:45 | Observation (INO) | payer MEDICARE ==
[2022-07-11] VITALS (7 sets, daily range): BP systolic 112–136; BP diastolic 55–60
[~2022-07-11] VITALS: Ht 185.4 cm; Wt 98.5 kg
[~2022-07-11 03:45] MED LIST changes: +POTA-179 PO; -POTA20TA15 PO
[2022-07-11] MEDS ORDERED: NS IV 500 ML 500 ML IV ONE (04:00)
--- NOTE | 2022-07-11 04:07 | ED Abdominal Pain ---
General Chief Complaint: Rect Problems Stated Complaint: ABD PAIN,BLOOD IN STOOLS Source of Information: Patient, Family Exam Limitations: No Limitations History of Present Illness Date Seen by Provider: Jul 11, 2022 Time Seen by Provider: 03:50 Initial Comments Patient here accompanied by his . reports the patient woke up this morning with abdominal pain and then had a bowel movement that she states was bright red blood. He has never had that before for. They elected to bring him here for further evaluation. reports that he did have a back stimulator placed several months ago. Its been several years since his last colonoscopy. Patient reports he woke up a few hours ago with lower abdominal discomfort and felt like he had to have diarrhea. Since then he is had 6 bowel movements that have all been bloody with darker blood. He reports constipation a few days ago and had to do a digital rectal disimpaction and then stool softeners and then he had a large bowel movement that was normal without blood. He has not had any blood in the interim until this morning. He has never had anything like this before. He is on a baby aspirin but otherwise not on blood thinners. Timing/Duration: 1-3 Hours Severity/Quality: Moderate, Aching, Cramping Location: RLQ, LLQ Radiation: No Radiation Activities at Onset: None Modifying Factors: Improves With Defecating Associated Symptoms: No Back Pain, No Chest Pain, No Fever/Chills, No Nausea /Vomiting, No Shortness of Air; Weakness Allergies and Home Medications Allergies Coded Allergies: Sulfa (Sulfonamide Antibiotics) (Verified Allergy, Unknown, 02/24/18) aspirin (Verified Allergy, Unknown, 02/24/18) Patient Home Medication List Home Medication List Reviewed: Yes Aspirin (Aspirin) 81 Mg Tab.chew, 81 MG PO DAILY, (Reported) Entered as Reported by: KATHY RIZZO on 02/24/18 0950 Cholecalciferol (Vitamin D3) (Vitamin D) 1,000 Unit Tablet, 1,000 UNIT PO DAILY, (Reported) Entered as Reported by: KATHY RIZZO on 02/24/18 0950 Enalapril Maleate (Enalapril Maleate) 2.5 Mg Tablet, 2.5 MG PO DAILY, (Reported) Entered as Reported by: KATHY RIZZO on 02/24/18 0950 Furosemide (Furosemide) 20 Mg Tablet, 20 MG PO DAILY, (Reported) Entered as Reported by: KATHY RIZZO on 02/24/18949 Hydrocodone/Acetaminophen (Hydrocodone-Acetamin 5-325 mg) 1 Each Tablet, 1 TAB PO Q6H PRN for PAIN-MODERATE (5-7) Prescribed by: RAMIN DAVIS on 09/11/20 1237 Levothyroxine Sodium (Levothyroxine Sodium) 100 Mcg Tablet, 100 MCG PO DAILY, (Reported) Entered as Reported by: KATHY RIZZO on 02/24/18949 Metoprolol Succinate (Metoprolol Succinate) 25 Mg Tab.er.24h, 25 MG PO DAILY, (Reported) Entered as Reported by: KATHY RIZZO on 02/24/18949 Multivitamin (Men's Multi-Vitamin) 1 Each Tablet, 1 EACH PO DAILY, (Reported) Entered as Reported by: KATHY RIZZO on 02/24/18949 [place] 3 Polyunsat Fatty Acids (Fish Oil 1,000 mg Capsule) 1,000 Mg Cap, 1,000 MG PO DAILY, (Reported) Entered as Reported by: KATHY RIZZO on 02/24/18949 Potassium Chloride (Potassium Chloride) 20 Meq Tab.er.prt, 20 MEQ PO DAILY, (Reported) Entered as Reported by: KATHY RIZZO on 02/24/18949 Simvastatin (Simvastatin) 20 Mg Tablet, 20 MG PO DAILY, (Reported) Entered as Reported by: KATHY RIZZO on 02/24/18949 Review of Systems Review of Systems Constitutional: see HPI; No chills, No fever Respiratory: Denies Cough, Denies Shortness of Air Cardiovascular: Denies Chest Pain, Denies Edema; Lightheadedness Gastrointestinal: Abdominal Pain, Diarrhea, Rectal Bleeding; Denies Vomiting Genitourinary: No Symptoms Reported Musculoskeletal: No back pain Skin: No change in color, No lesions Past Yphczuy-Bidzak-Sgcgch Hx Patient Social History Tobacco Use?: No Use of E-Cig and/or Vaping dev: No Substance use?: No Alcohol Use?: Yes Alcohol type: Wine Alcohol Frequency: Once in a while Immunizations Up To Date Tetanus Booster (TDap): Unknown PED Vaccines UTD: No Seasonal Allergies Seasonal Allergies: No Past Medical History Surgeries: Yes (BILAT INGUINAL HERNIA REPAIRS,X3 HEART CATHS, NON- INTERVENTIONAL) Appendectomy Respiratory: No Cardiac: Yes High Cholesterol, Hypertension, Peripheral Vascular Neurological: No Reproductive Disorders: No Sexually Transmitted Disease: No HIV/AIDS: No Gastrointestinal: No Musculoskeletal: No Endocrine: Yes Hypothyroidsim Loss of Vision: Bilateral Cancer: No Psychosocial: No Integumentary: No Recent Skin Changes Blood Disorders: No Adverse Reaction/Blood Tranf: No (N/A) Family Medical History Reviewed Nursing Family Hx No Pertinent Family Hx Physical Exam Vital Signs Vital Signs - First Documented 07/11/22 03:52 Temp 36.8 Pulse 75 Resp 20 B/P (MAP) 133/67 (89) Pulse Ox 97 O2 Delivery Room Air Capillary Refill : Height/Weight/BMI Height: 6'2.00" Weight: 236lbs. 0.0oz. 107.537315sw; 29.00 BMI Method:Stated General Appearance: WD/WN, no apparent distress HEENT: PERRL/EOMI, pharynx normal Neck: full range of motion, supple Respiratory: lungs clear, normal breath sounds Cardiovascular: regular rate, rhythm, no murmur Gastrointestinal: soft, abnormal bowel sounds (Hyperactive), tenderness (Mild lower abdomen bilateral) Extremities: non-tender, normal inspection Back: normal inspection, no CVA tenderness, no vertebral tenderness Neurologic/Psychiatric: alert, oriented x 3 Skin: normal color, warm/dry Progress/Results/Core Measures Results/Orders Lab Results Laboratory Tests Test 07/11/22 04:07 Range/Units White Blood Count 9.8 4.3-11.0 10^3/uL Red Blood Count 4.52 4.30-5.52 10^6/uL Hemoglobin 13.3 13.3-17.7 g/dL Hematocrit 41 40-54 % Mean Corpuscular Volume 90 80-99 fL Mean Corpuscular Hemoglobin 29 25-34 pg Mean Corpuscular Hemoglobin Concent 33 32-36 g/dL Red Cell Distribution Width 13.9 10.0-14.5 % Platelet Count 177 130-400 10^3/uL Mean Platelet Volume 9.7 9.0-12.2 fL Immature Granulocyte % (Auto) 0 % Neutrophils (%) (Auto) 54 42-75 % Lymphocytes (%) (Auto) 34 12-44 % Monocytes (%) (Auto) 8 0-12 % Eosinophils (%) (Auto) 4 0-10 % Basophils (%) (Auto) 1 0-10 % Neutrophils # (Auto) 5.3 1.8-7.8 10^3/uL Lymphocytes # (Auto) 3.3 1.0-4.0 10^3/uL Monocytes # (Auto) 0.8 0.0-1.0 10^3/uL Eosinophils # (Auto) 0.4 H 0.0-0.3 10^3/uL Basophils # (Auto) 0.1 0.0-0.1 10^3/uL Immature Granulocyte # (Auto) 0.0 0.0-0.1 10^3/uL Sodium Level 141 135-145 MMOL/L Potassium Level 4.2 3.6-5.0 MMOL/L Chloride Level 107 98-107 MMOL/L Carbon Dioxide Level 23 21-32 MMOL/L Anion Gap 11 5-14 MMOL/L Blood Urea Nitrogen 19 H 7-18 MG/DL Creatinine 1.05 0.60-1.30 MG/DL Estimat Glomerular Filtration Rate 70 BUN/Creatinine Ratio 18 Glucose Level 125 H 70-105 MG/DL Calcium Level 9.2 8.5-10.1 MG/DL Corrected Calcium 9.3 8.5-10.1 MG/DL Total Bilirubin 0.5 0.1-1.0 MG/DL Aspartate Amino Transf (AST/SGOT) 18 5-34 U/L Alanine Aminotransferase (ALT/SGPT) 19 0-55 U/L Alkaline Phosphatase 72 40-136 U/L C-Reactive Protein High Sensitivity 0.55 H 0.00-0.50 MG/DL Total Protein 6.6 6.4-8.2 GM/DL Albumin 3.9 3.2-4.5 GM/DL My Orders Orders - RAMIN DAVIS MD Cbc With Automated Diff (07/11/22 03:56) Comprehensive Metabolic Panel (07/11/22 03:56) Hs C Reactive Protein (07/11/22 03:56) Fecal Occult Bedside (07/11/22 03:56) Ed Iv/Invasive Line Start (07/11/22 03:56) Ns Iv 500 Ml (Sodium Chloride 0.9%) (07/11/22 04:00) Red Cells Leukocytes Reduced (07/11/22 04:11) Type And Screen (07/11/22 04:11) Ct Abdomen/Pelvis W (07/11/22 04:33) Stool Culture (07/11/22 04:34) Iohexol Injection (Omnipaque 350 Mg/Ml 1 (07/11/22 05:30) Sodium Chloride Flush (Catheter Flush Sy (07/11/22 05:30) Ns (Ivpb) (Sodium Chloride 0.9% Ivpb Bag (07/11/22 05:30) Medications Given in ED Current Medications Medications Dose Ordered Sig/[place] Route Start Time Stop Time Status Last Admin Dose Admin Iohexol 100 ml ONCE ONCE IV 07/11/22 05:30 07/11/22 05:31 DC 07/11/22 05:22 80 ML Sodium Chloride 10 ml NEEDED PRN IV 07/11/22 05:30 07/11/22 05:22 10 ML Sodium Chloride 100 ml ONCE ONCE IV 07/11/22 05:30 07/11/22 05:31 DC 07/11/22 05:22 80 ML Sodium Chloride 500 ml @ 0 mls/hr Q0M ONCE IV 07/11/22 04:00 07/11/22 04:01 DC 07/11/22 04:07 999 MLS/HR Vital Signs/I&O 07/11/22 03:52 Temp 36.8 Pulse 75 Resp 20 B/P (MAP) 133/67 (89) Pulse Ox 97 O2 Delivery Room Air Progress Progress Note : Progress Note Seen and evaluated. IV, normal saline 500 mL bolus, CBC, CMP and CRP ordered. We will go ahead and order blood bank. Anticipate CT abdomen and pelvis with contrast determination based on renal function. Monitor patient. Differential includes lower GI bleed, upper GI bleed, diverticulitis, diverticu losis, bowel perforation, neoplasm 0435: CBC resulted and shows normal white count with hemoglobin of 13.3. Chemistry shows normal electrolytes with serum creatinine of 1.05 and essentially normal or nonconcerning LFTs. CRP noted at 0.55. I have ordered CT abdomen and pelvis with contrast to further evaluate differential. Monitor patient. 0515: CT complete. I have reviewed the films and I do see areas of diverticulitis likely in the distal colon and sigmoid without perforation on my interpretation. We are awaiting radiology read. It is very likely the patient will need admission given the amount of bleeding that he has had this morning. This was discussed with the patient who agrees. We will pursue that when CT results are noted. Monitor patient. 0548: I have discussed the case with Dr. Hill, surgeon on-call and he accepts patient for consult. I have discussed the case with Dr. Yadav, on-call for hospitalist service who accepts patient for admission, observation status to the [facility] floor. We will do H&H every 6 hours. Patient has type and cross for 2 units if needed but does not need that currently. Final CT results pending. Findings and concerns discussed with patient and family who agree with plan. Patient requested full code. Departure Communication (Admissions) Time/Spoke to Admitting Phy: 05:46 Time/Spoke to Consulting Phy: 05:43 Impression Primary Impression: GI bleed Qualified Codes: K92.2 - Gastrointestinal hemorrhage, unspecified Disposition: ADMITTED INPATIENT Condition: Stable Admissions Decision to Admit Reason: Admit from ER (General) Decision to Admit/Date: Jul 11, 2022 Time/Decision to Admit Time: 05:43 Departure-Patient Inst. Referrals: JORGE COYLE MD (PCP/Family) Primary Care Physician RAMIN DAVIS MD Jul 11, 2022 04:07
[2022-07-11 04:14] LABS: BASOPHILS # (AUTO) 0.1 10^3/uL (0.0-0.1); BASOPHILS % (AUTO) 1 % (0-10); EOSINOPHILS # (AUTO) 0.4 10^3/uL (0.0-0.3); EOSINOPHILS % (AUTO) 4 % (0-10); HEMATOCRIT 41 % (40-54); HEMOGLOBIN 13.3 g/dL (13.3-17.7); LYMPHOCYTES # (AUTO) 3.3 10^3/uL (1.0-4.0); LYMPHOCYTES % (AUTO) 34 % (12-44); MEAN CORPUSCULAR HEMOGLOBIN 29 pg (25-34); MEAN CORPUSCULAR HGB CONC 33 g/dL (32-36); MEAN CORPUSCULAR VOLUME 90 fL (80-99); MEAN PLATELET VOLUME 9.7 fL (9.0-12.2); MONOCYTES # (AUTO) 0.8 10^3/uL (0.0-1.0); MONOCYTES % (AUTO) 8 % (0-12); NEUTROPHILS # (AUTO) 5.3 10^3/uL (1.8-7.8); NEUTROPHILS % (AUTO) 54 % (42-75); PLATELET COUNT 177 10^3/uL (130-400); WHITE BLOOD COUNT 9.8 10^3/uL (4.3-11.0)
[2022-07-11 04:24] LABS: ALBUMIN 3.9 GM/DL (3.2-4.5)
[2022-07-11 04:25] LABS: POTASSIUM 4.2 MMOL/L (3.6-5.0)
[2022-07-11 04:26] LABS: CALCIUM 9.2 MG/DL (8.5-10.1)
[2022-07-11 04:27] LABS: TOTAL PROTEIN 6.6 GM/DL (6.4-8.2)
[2022-07-11 04:29] LABS: BILIRUBIN,TOTAL 0.5 MG/DL (0.1-1.0)
[2022-07-11 04:31] LABS: CREATININE SERUM 1.05 MG/DL (0.60-1.30)
[2022-07-11] MEDS ORDERED: CATHETER FLUSH 10 ML SYR IV PRN (05:30)
[2022-07-11] MEDS ORDERED: NS 100 ML (IVPB) BAG IV ONE (05:30)
[2022-07-11] MEDS ORDERED: IOHEXOL 350 MG/ML 100 ML (OMNIPAQUE 350) VIAL IV ONE (05:30)
[2022-07-11] MEDS ORDERED: diphenhydrAMINE 25 MG TAB (BENADRYL) PO PRN (06:15)
[2022-07-11] MEDS ORDERED: ONDANSETRON 4 MG/2 ML (SDV) Z0FRAN IV PRN (06:15)
[2022-07-11] MEDS ORDERED: diphenhydrAMINE 50 MG/ML INJ (BENADRYL) IVP PRN (06:15)
[2022-07-11] MEDS ORDERED: MELATONIN 3 MG TABLET PO PRN (06:15)
[2022-07-11] MEDS ORDERED: MILK OF MAGNESIA 400 MG/5 ML 30 ML UDC PO PRN (06:15)
[2022-07-11] MEDS ORDERED: CALCIUM CARBONATE 500 MG (TUMS) TAB.CHEW PO PRN (06:15)
[2022-07-11] MEDS ORDERED: ANTACID SUSP 30 ML UDC (MYLANTA) PO PRN (06:15)
[2022-07-11] MEDS ORDERED: polyethylene glycoL POWDER 17 GM (MIRALAX) PACK PO PRN (06:15)
[2022-07-11] MEDS ORDERED: ACETAMINOPHEN 325 MG TABLET PO PRN (06:15)
[2022-07-11] MEDS ORDERED: BISACODYL 10 MG SUPP (DULCOLAX) PR PRN (06:15)
[2022-07-11] MEDS ORDERED: LACTULOSE SYRUP 10GM/15ML (ENULOSE) 30ML UDC PO PRN (06:15)
[2022-07-11] MEDS ORDERED: morphine INJ 4 MG/ML 1 ML (VIAL/SYRINGE) IV PRN (06:15)
[2022-07-11] MEDS ORDERED: ONDANSETRON 4 MG (ZOFRAN) ORAL DISSOLVE TAB PO PRN (06:15)
--- NOTE | 2022-07-11 06:41 | Diagnostic Imaging Report ---
CLINICAL INDICATION: Patient with abdominal pain and bloody stools. Patient's history of appendectomy, hernia repair. Back stimulator. EXAM: Axial CT scan of the abdomen performed with 80 mL of Omnipaque 350 IV contrast. Sagittal and coronal reformatted images are created. COMPARISON: CT scan of abdomen and pelvis without contrast dated 07/25/2020. FINDINGS: There is minimal atelectasis or scarring involving both lung bases. There are degenerative spurs involving bilateral acetabular regions. There is lower lumbar spine facet arthropathy. There are hypertrophic spurs involving the lower thoracic spine and lumbar spine. The liver, spleen, pancreas and gallbladder are unremarkable. Adrenal glands are unremarkable. There are small subcentimeter low-density areas involving the upper aspects of both kidneys. Largest one measures 9 mm on the right. These likely represent cysts. There is interval development of a 9 mm in greatest axial dimension stone within the distal left ureter/UVJ region. There is no left hydronephrosis or adjacent fat stranding. Otherwise, both kidneys are unremarkable with no hydronephrosis or mass. Bladder is predominantly decompressed with wall thickening which is nonspecific. Prominent prostate gland is seen measuring 5.8 cm in transverse dimensions. There is no intra-abdominal free air or free fluid. There is no significant lymphadenopathy. There is note of a small duodenal diverticulum involving the 3rd and 4th portion of the duodenum which is also seen on prior study. There is wall thickening involving the distal esophagus which is nonspecific. Stomach is decompressed. Small bowel shows no other significant abnormality. There is diverticulosis involving the sigmoid colon and descending colon with no CT evidence of diverticulitis. Previously seen diffuse wall thickening involving the colon has resolved. There is mild wall thickening involving the cecum is nonspecific. There are air-fluid levels seen throughout the colon with no dilated intestine seen. Appendectomy changes are noted. Extra abdominal and extrapelvic soft tissue structures are unremarkable. IMPRESSION: 1: There is interval development of an 9 mm stone within the distal left ureter/UVJ region. There is no hydronephrosis or adjacent fat stranding. Both kidneys show no other acute abnormality. 2: There are air-fluid levels seen throughout the colon with no significant colonic wall thickening. These findings are nonspecific. Mild colitis and/or diarrhea may be considered. Previously seen diffuse colonic wall thickening has resolved. 3: There is wall thickening involving the distal esophagus which is nonspecific. Esophagitis cannot be completely excluded. 4: There is bladder wall thickening, but the bladder has small amount of fluid within it. This finding may be related to contraction versus bladder outlet obstruction versus cystitis. Prostate gland is enlarged. I agree with [facility] report. Dictated by: Dictated on workstation # [id number]
[2022-07-11] MEDS: NS IV 1000 ML 1,000 ML IV SCH ×2 (06:45→15:42)
--- NOTE | 2022-07-11 06:54 | Consultation - Surgery ---
ALANNAH LEIVA 07/11/22 0654: History of Present Illness History of Present Illness Patient Consulted On(flori/time) 07/11/22 06:43 Date Seen by Provider: Jul 11, 2022 Time Seen by Provider: 06:00 History of Present Illness German Kinney is a 86yo male presenting due to a GI bleed. Pt states he has been having constipation for the past week w/o any discomfort or pain, and is not typically constipated. Pt states that he used stool softeners, prune juice, and put on rubber glove about 2 days ago which allowed to pass golf ball sized and smaller hard stool. After passing hard stool, pt had a normal bowel movement w/o complications. After the normal bowel movement pt continued using stool softeners which led to him having 6-7 bowel movements this morning that were mostly dark blood w/o pain and w/in a 2-2.5hr period. This prompted ED visit, which is when he had another bowel movement that was collected for culture, and was dark in consistency as well. Pt doesn't recall ever passing blood before, and if he ever had constipation in the past it stool softeners would relieve. Pt states that he has had reflux in the past, but hasn't had episodes recently, and states that he has been using ibuprofen more recently due to back pain. Pt cannot remember the last time he has had a colonoscopy, and believes its been awhile. Pt endorses abdominal pain pointing to the LLQ,CAMILO, dizziness, constipation w/in past week, and sinus congestion. Pt denies fever, chills, numbness/tingling, chest pain, palpitation, nausea, and vomiting. Allergies and Home Medications Allergies Coded Allergies: Sulfa (Sulfonamide Antibiotics) (Verified Allergy, Unknown, 02/24/18) aspirin (Verified Allergy, Unknown, 02/24/18) Patient Home Medication List Aspirin (Aspirin EC) 81 Mg Tablet., 81 MG PO 1800, (Reported) Entered as Reported by: RON REEVES on 07/11/22 115 Last Action: Reviewed Cholecalciferol (Vitamin D3) (Vitamin D3) 25 Mcg (1000 Unit) Tablet, 25 MCG PO BID, (Reported) Entered as Reported by: RON REEVES on 07/11/22 115 Last Action: Reviewed Enalapril Maleate (Enalapril Maleate) 2.5 Mg Tablet, 2.5 MG PO DAILY, (Reported) Entered as Reported by: KATHY RIZZO on 02/24/18949 Last Action: Reviewed Furosemide (Furosemide) 20 Mg Tablet, 20 MG PO DAILY, (Reported) Entered as Reported by: KATHY RIZZO on 02/24/18949 Last Action: Reviewed Levothyroxine Sodium (Levothyroxine Sodium) 125 Mcg Tablet, 125 MCG PO DAILY, (Reported) Entered as Reported by: RON REEVES on 07/11/221150 Last Action: Reviewed Metoprolol Succinate (Metoprolol Succinate) 25 Mg Tab.er.24h, 12.5 MG PO 1800, (Reported) Entered as Reported by: KATHY RIZZO on 02/24/18949 Last Action: Reviewed [place]-3 Fatty Acids/Fish Oil ([place] 3 Fish Oil Softgel) 684 Mg-1,[address], 1 EACH PO 1800, (Reported) Entered as Reported by: RON REEVES on 07/11/221150 Last Action: Reviewed Potassium Chloride (Potassium Chloride) 20 Meq Tab.er.prt, 20 MEQ PO DAILY, (Reported) Entered as Reported by: KATHY RIZZO on 02/24/18949 Last Action: Reviewed Simvastatin (Simvastatin) 20 Mg Tablet, 20 MG PO 1800, (Reported) Entered as Reported by: KATHY RIZZO on 02/24/18949 Last Action: Reviewed Zinc Gluconate (Zinc) 50 Mg Tablet, 50 MG PO BID, (Reported) Entered as Reported by: RON REEVES on 07/11/221150 Last Action: Reviewed Discontinued Medications Cholecalciferol (Vitamin D3) (Vitamin D) 1,000 Unit Tablet, 1,000 UNIT PO DAILY, (Reported) Discontinued Reason: Duplicate Order Entered as Reported by: KATHY RIZZO on 02/24/18949 Last Action: Discontinued Hydrocodone/Acetaminophen (Hydrocodone-Acetamin 5-325 mg) 1 Each Tablet, 1 TAB PO Q6H PRN for PAIN-MODERATE (5-7) Discontinued Reason: No Longer Taking Prescribed by: RAMIN DAVIS on 09/11/20 1237 Last Action: Discontinued Levothyroxine Sodium (Levothyroxine Sodium) 100 Mcg Tablet, 100 MCG PO DAILY, (Reported) Discontinued Reason: No Longer Taking Entered as Reported by: KATHY RIZZO on 02/24/18949 Last Action: Discontinued Multivitamin (Men's Multi-Vitamin) 1 Each Tablet, 1 EACH PO DAILY, (Reported) Discontinued Reason: No Longer Taking Entered as Reported by: KATHY RIZZO on 02/24/18949 Last Action: Discontinued [place] 3 Polyunsat Fatty Acids (Fish Oil 1,000 mg Capsule) 1,000 Mg Cap, 1,000 MG PO DAILY, (Reported) Discontinued Reason: Duplicate Order Entered as Reported by: KATHY RIZZO on 02/24/18949 Last Action: Discontinued Past Qmlgyfw-Lnawxj-Mvzqeh Hx Patient Social History Former Smoker, Quit: Feb 24, 1965 Recent Hopitalizations: No Alcohol Use?: Yes Have you traveled recently?: No Immunizations Up To Date Tetanus Booster (TDap): Unknown PED Vaccines UTD: No Date of Pneumonia Vaccine: Apr 23, 2007 Date of Influenza Vaccine: Mar 24, 2017 Seasonal Allergies Seasonal Allergies: No Surgeries History of Surgeries: Yes (BILAT INGUINAL HERNIA REPAIRS,X3 HEART CATHS, NON- INTERVENTIONAL) Surgeries: Appendectomy Respiratory History of Respiratory Disorde: No Cardiovascular History of Cardiac Disorders: Yes Cardiac Disorders: High Cholesterol, Hypertension, Peripheral Vascular Neurological History of Neurological Disord: No Reproductive System Hx Reproductive Disorders: No Sexually Transmitted Disease: No HIV/AIDS: No Gastrointestinal History of Gastrointestinal Di: No Musculoskeletal History of Musculoskeletal Dis: No Endocrine History of Endocrine Disorders: Yes 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 Cancer History of Cancer: No Psychosocial History of Psychiatric Problem: No Integumentary History of Skin or Integumenta: No Skin/Integumentary Disorders: Recent Skin Changes Blood Transfusions History of Blood Disorders: No Adverse Reaction to a Blood Tr: No (N/A) Family Medical History Significant Family History: No Pertinent Family Hx Review of Systems-General Constitutional: No chills; dizziness; No fever Respiratory: cough (Chronic Cough nothing out of ordinary); No short of breath Cardiovascular: No chest pain, No palpitations Gastrointestinal: LLQ, abdominal pain (LLQ), constipation, melena Psychiatric/Neurological: Denies Numbness, Denies Tingling Physical Exam-General Problems Physical Exam Vital Signs Vital Signs - First Documented 07/11/22 03:52 Temp 36.8 Pulse 75 Resp 20 B/P (MAP) 133/67 (89) Pulse Ox 97 O2 Delivery Room Air Capillary Refill : Less Than 3 Seconds General Appearance: no apparent distress HEENT: PERRL/EOMI Neck: non-tender, full range of motion, supple Respiratory: chest non-tender, lungs clear, normal breath sounds Cardiovascular: normal peripheral pulses, regular rate, rhythm, no edema, no JVD, no murmur Peripheral Pulses: 2+ Radial Pulses (R), 2+ Radial Pulses (L) Gastrointestinal: normal bowel sounds, non tender, soft Rectal: deferred Extremities: normal range of motion, non-tender, normal inspection, no pedal edema, no calf tenderness Neurologic/Psychiatric: alert, normal mood/affect, oriented x 3 Skin: normal color, warm/dry Lymphatic: no adenopathy Data Review Labs Laboratory Tests 07/11/22 04:07: White Blood Count 9.8, Red Blood Count 4.52, Hemoglobin 13.3, Hematocrit 41, Mean Corpuscular Volume 90, Mean Corpuscular Hemoglobin 29, Mean Corpuscular Hemoglobin Concent 33, Red Cell Distribution Width 13.9, Platelet Count 177, Mean Platelet Volume 9.7, Immature Granulocyte % (Auto) 0, Neutrophils (%) (Auto) 54, Lymphocytes (%) (Auto) 34, Monocytes (%) (Auto) 8, Eosinophils (%) (Auto) 4, Basophils (%) (Auto) 1, Neutrophils # (Auto) 5.3, Lymphocytes # (Auto) 3.3, Monocytes # (Auto) 0.8, Eosinophils # (Auto) 0.4H, Basophils # (Auto) 0.1, Immature Granulocyte # (Auto) 0.0, Sodium Level 141, Potassium Level 4.2, Chloride Level 107, Carbon Dioxide Level 23, Anion Gap 11, Blood Urea Nitrogen 19H, Creatinine 1.05, Estimat Glomerular Filtration Rate 70, BUN/Creatinine Ratio 18, Glucose Level 125H, Calcium Level 9.2, Corrected Calcium 9.3, Total Bilirubin 0.5, Aspartate Amino Transf (AST/SGOT) 18, Alanine Aminotransferase (ALT/SGPT) 19, Alkaline Phosphatase 72, C-Reactive Protein High Sensitivity 0.55H, Total Protein 6.6, Albumin 3.9 Radiology Date of Exam:07/11/22 CT ABDOMEN/PELVIS W CLINICAL INDICATION: Patient with abdominal pain and bloody stools. Patient's history of appendectomy, hernia repair. Back stimulator. EXAM: Axial CT scan of the abdomen performed with 80 mL of Omnipaque 350 IV contrast. Sagittal and coronal reformatted images are created. COMPARISON: CT scan of abdomen and pelvis without contrast dated 07/25/2020. FINDINGS: There is minimal atelectasis or scarring involving both lung bases. There are degenerative spurs involving bilateral acetabular regions. There is lower lumbar spine facet arthropathy. There are hypertrophic spurs involving the lower thoracic spine and lumbar spine. The liver, spleen, pancreas and gallbladder are unremarkable. Adrenal glands are unremarkable. There are small subcentimeter low-density areas involving the upper aspects of both kidneys. Largest one measures 9 mm on the right. These likely represent cysts. There is interval development of a 9 mm in greatest axial dimension stone within the distal left ureter/UVJ region. There is no left hydronephrosis or adjacent fat stranding. Otherwise, both kidneys are unremarkable with no hydronephrosis or mass. Bladder is predominantly decompressed with wall thickening which is nonspecific. Prominent uterus is seen measuring 5.8 cm in transverse dimensions. There is no intra-abdominal free air or free fluid. There is no significant lymphadenopathy. There is note of a small duodenal diverticulum involving the 3rd and 4th portion of the duodenum which is also seen on prior study. There is wall thickening involving the distal esophagus which is nonspecific. Stomach is decompressed. Small bowel shows no other significant abnormality. There is diverticulosis involving the sigmoid colon and descending colon with no CT evidence of diverticulitis. Previously seen diffuse wall thickening involving the colon has resolved. There is mild wall thickening involving the cecum is nonspecific. There are air-fluid levels seen throughout the colon with no dilated intestine seen. Appendectomy changes are noted. Extra abdominal and extrapelvic soft tissue structures are unremarkable. IMPRESSION: 1: There is interval development of an 9 mm stone within the distal left ureter/UVJ region. There is no hydronephrosis or adjacent fat stranding. Both kidneys show no other acute abnormality. 2: There are air-fluid levels seen throughout the colon with no significant colonic wall thickening. These findings are nonspecific. Mild colitis and/or diarrhea may be considered. Previously seen diffuse colonic wall thickening has resolved. 3: There is wall thickening involving the distal esophagus which is nonspecific. Esophagitis cannot be completely excluded. 4: There is bladder wall thickening, but the bladder has small amount of fluid within it. This finding may be related to contraction versus bladder outlet obstruction versus cystitis. Prostate gland is enlarged. Assessment/Plan Assessment/Plan Assessment/Plan Acute GI Bleed Abdominal Pain Constipation Hyperglycemia Monitor Bowel Movement for stools Supportive Care and Pain Management Consider Stool Softeners prn Sliding Scale Consider Colonoscopy; Been awhile since last colonoscopy Follow H&H transfuse accordingly Clinical Quality Measures DVT/VTE Risk/Contraindication: Contraindications-Pharm: Other *list below* Other: SUZY Hazel DO 07/11/22 2322: History of Present Illness History of Present Illness History of Present Illness Consult blood per rectum. Patient is an 86 year old male who began passing multiple bloody bowel movements early this morning. He first thought he was going to have diarrhea and noted them to be bloody. He has had recent constipation that he has tried multiple things to resolve. Had to finally manually remove hard stools which then helped relieve his constipation. He has only had one bloody stool since being in the hospital. He is not having any abdominal pain except minimal discomfort in llq. Has not had bleeding issues in the past. Last colonoscopy was many years ago he states. He had Ct scan abdomen and pelvis: 1: There is interval development of an 9 mm stone within the distal left ureter/UVJ region. There is no hydronephrosis or adjacent fat stranding. Both kidneys show no other acute abnormality. 2: There are air-fluid levels seen throughout the colon with no significant colonic wall thickening. These findings are nonspecific. Mild colitis and/or diarrhea may be considered. Previously seen diffuse colonic wall thickening has resolved. 3: There is wall thickening involving the distal esophagus which is nonspecific. Esophagitis cannot be completely excluded. 4: There is bladder wall thickening, but the bladder has small amount of fluid within it. This finding may be related to contraction versus bladder outlet obstruction versus cystitis. Prostate gland is enlarged. Allergies and Home Medications Allergies Coded Allergies: Sulfa (Sulfonamide Antibiotics) (Verified Allergy, Unknown, 02/24/18) aspirin (Verified Allergy, Unknown, 02/24/18) Patient Home Medication List Home Medication List Reviewed: Yes Aspirin (Aspirin EC) 81 Mg Tablet.dr, 81 MG PO 1800, (Reported) Entered as Reported by: RON REEVES on 07/11/221150 Last Action: Reviewed Cholecalciferol (Vitamin D3) (Vitamin D3) 25 Mcg (1000 Unit) Tablet, 25 MCG PO BID, (Reported) Entered as Reported by: RON REEVES on 07/11/221150 Last Action: Reviewed Enalapril Maleate (Enalapril Maleate) 2.5 Mg Tablet, 2.5 MG PO DAILY, (Reported) Entered as Reported by: KATHY RIZZO on 02/24/18949 Last Action: Reviewed Furosemide (Furosemide) 20 Mg Tablet, 20 MG PO DAILY, (Reported) Entered as Reported by: KATHY RIZZO on 02/24/18949 Last Action: Reviewed Levothyroxine Sodium (Levothyroxine Sodium) 125 Mcg Tablet, 125 MCG PO DAILY, (Reported) Entered as Reported by: RON REEVES on 07/11/221150 Last Action: Reviewed Metoprolol Succinate (Metoprolol Succinate) 25 Mg Tab.er.24h, 12.5 MG PO 1800, (Reported) Entered as Reported by: KATHY RIZZO on 02/24/18949 Last Action: Reviewed [place]-3 Fatty Acids/Fish Oil ([place] 3 Fish Oil Softgel) 684 Mg-1,200 Mg Cap roselyn., 1 EACH PO 1800, (Reported) Entered as Reported by: RON REEVES on 07/11/221150 Last Action: Reviewed Potassium Chloride (Potassium Chloride) 20 Meq Tab.er.prt, 20 MEQ PO DAILY, (Reported) Entered as Reported by: KATHY RIZZO on 02/24/18949 Last Action: Reviewed Simvastatin (Simvastatin) 20 Mg Tablet, 20 MG PO 1800, (Reported) Entered as Reported by: KATHY RIZZO on 02/24/18949 Last Action: Reviewed Zinc Gluconate (Zinc) 50 Mg Tablet, 50 MG PO BID, (Reported) Entered as Reported by: RON REEVES on 07/11/221150 Last Action: Reviewed Discontinued Medications Cholecalciferol (Vitamin D3) (Vitamin D) 1,000 Unit Tablet, 1,000 UNIT PO DAILY, (Reported) Discontinued Reason: Duplicate Order Entered as Reported by: KATHY RIZZO on 02/24/18949 Last Action: Discontinued Hydrocodone/Acetaminophen (Hydrocodone-Acetamin 5-325 mg) 1 Each Tablet, 1 TAB PO Q6H PRN for PAIN-MODERATE (5-7) Discontinued Reason: No Longer Taking Prescribed by: RAMIN DAVIS on 09/11/20 1237 Last Action: Discontinued Levothyroxine Sodium (Levothyroxine Sodium) 100 Mcg Tablet, 100 MCG PO DAILY, (Reported) Discontinued Reason: No Longer Taking Entered as Reported by: KATHY RIZZO on 02/24/18949 Last Action: Discontinued Multivitamin (Men's Multi-Vitamin) 1 Each Tablet, 1 EACH PO DAILY, (Reported) Discontinued Reason: No Longer Taking Entered as Reported by: KATHY RIZZO on 02/24/18949 Last Action: Discontinued [place] 3 Polyunsat Fatty Acids (Fish Oil 1,000 mg Capsule) 1,000 Mg Cap, 1,000 MG PO DAILY, (Reported) Discontinued Reason: Duplicate Order Entered as Reported by: KATHY RIZZO on 02/24/18949 Last Action: Discontinued Past Fsjdhqu-Fchsaq-Nupyjc Hx Reviewed Nursing Assessment Reviewed/Agree w Nursing PMH: Yes Family Medical History Significant Family History: No Pertinent Family Hx Review of Systems-General Constitutional: No chills; dizziness; No fever EENTM: No blurred vision, No double vision Respiratory: cough (Chronic Cough nothing out of ordinary); No short of breath Cardiovascular: No chest pain, No palpitations Gastrointestinal: LLQ, abdominal pain (LLQ), constipation, melena; No nausea, No vomiting Genitourinary: No decreased output, No discharge Musculoskeletal: No back pain, No joint pain Skin: No change in color, No change in hair/nails Psychiatric/Neurological: Denies Anxiety, Denies Depressed, Denies Emotional Problems, Denies Numbness All Other Systems Reviewed Negative Unless Noted: Yes (Negative excepted noted.) Physical Exam-General Problems Physical Exam General Appearance: WD/WN, no apparent distress HEENT: PERRL/EOMI, normal ENT inspection Neck: non-tender, full range of motion, supple Respiratory: chest non-tender, no respiratory distress, no accessory muscle use Cardiovascular: regular rate, rhythm, no JVD Gastrointestinal: non tender, soft Rectal: deferred Back: no CVA tenderness, no vertebral tenderness Extremities: normal range of motion, non-tender Neurologic/Psychiatric: alert, normal mood/affect, oriented x 3 Skin: normal color, warm/dry Lymphatic: no adenopathy Assessment/Plan Assessment/Plan Assessment/Plan Acute GI Bleed -lower Abdominal Pain-llq minimal Constipation Clear liquid diet Follow hgb transfuse as needed. Will try supportive measures, may need colonoscopy inpatient, if not will need one outpatient. Discussed possible causes Patient questions answered to his satisfaction Supervisory-Addendum Brief Verification & Attestation Participated in pt care: history, MDM, physical Personally performed: exam, history, MDM, supervision of care Care discussed with: Medical Student Procedures: n/a Results interpretation: Verified all documentation Verification and Attestation of Medical Student E/M Service A medical student performed and documented this service in my presence. I reviewed and verified all information documented by the medical student and made modifications to such information, when appropriate. I personally performed the physical exam and medical decision making. Suzy Canchola, Jul 11, 2022,13:26 ALANNAH LEIVA Jul 11, 2022 06:54 SUZY CANCHOLA DO Jul 11, 2022 23:22
[2022-07-11] MEDS ORDERED: RT-ALBUTEROL SULF 2.5 MG/3 ML PRE-MIX VIAL INH PRN (07:30)
[2022-07-11] MEDS: SENNOSIDES 8.6 MG (SENOKOT) TAB PO SCH ×2 (07:57→21:19)
[2022-07-11] MEDS: DOCUSATE SODIUM 100 MG (COLACE) CAP PO SCH ×2 (07:57→21:19)
[2022-07-11] MEDS: PANTOPRAZOLE 40 MG (PROTONIX) VIAL IV SCH (09:16)
[2022-07-11] MEDS ORDERED: LEVO125T6 PO (11:51)
[2022-07-11] MEDS ORDERED: ASPI-1238 PO (11:51)
[2022-07-11] MEDS ORDERED: OMEG1CAP24 PO (11:51)
[2022-07-11] MEDS ORDERED: CHOL-34 PO (11:51)
[2022-07-11] MEDS ORDERED: ZINC50TA11 PO (11:51)
--- NOTE | 2022-07-11 12:28 | History & Physical ---
ADA RYAN 07/11/22 1228: History of Present Illness History of Present Illness Reason for visit/HPI Thuy Agrawal is chalo 86 y/o male with past medical hx of HTN, HLD, and GERD who presented to the ER on 07/11 after having several episode of bloody stools. 4 days ago he felt constipated and has to manually disimpact the stool at home. After this he began to use stool softeners at home and had more than normal BMs after that. At 1:30 AM he noticed a red and watery stool followed by several more episodes of this after. Total of 3 to 4 bloody BM before arrival to the ER. He denies any history of GI bleeds or colorectal cancer. He is not currently in pain but does describe some LLQ fullness. He denies abdominal distention. Date of Admission Jul 11, 2022 at 05:50 I consulted on this patient on 07/11/22 12:21 Attending Physician Kem Garcia MD Admitting Physician Admitting Physician: Natacha Mims DO Attending Physician: Natacha Mims DO Consult Allergies and Home Medications Allergies Coded Allergies: Sulfa (Sulfonamide Antibiotics) (Verified Allergy, Unknown, 02/24/18) aspirin (Verified Allergy, Unknown, 02/24/18) Patient Home Medication List Home Medication List Reviewed: Yes Aspirin (Aspirin EC) 81 Mg Tablet.dr, 81 MG PO 1800, (Reported) Entered as Reported by: RON REEVES on 07/11/22 115 Last Action: Reviewed Cholecalciferol (Vitamin D3) (Vitamin D3) 25 Mcg (1000 Unit) Tablet, 25 MCG PO BID, (Reported) Entered as Reported by: RON REEVES on 07/11/22 115 Last Action: Reviewed Enalapril Maleate (Enalapril Maleate) 2.5 Mg Tablet, 2.5 MG PO DAILY, (Reported) Entered as Reported by: KATHY RIZZO on 02/24/18 0950 Last Action: Reviewed Furosemide (Furosemide) 20 Mg Tablet, 20 MG PO DAILY, (Reported) Entered as Reported by: KATHY RIZZO on 02/24/18 0950 Last Action: Reviewed Levothyroxine Sodium (Levothyroxine Sodium) 125 Mcg Tablet, 125 MCG PO DAILY, (Reported) Entered as Reported by: RON REEVES on 07/11/221150 Last Action: Reviewed Metoprolol Succinate (Metoprolol Succinate) 25 Mg Tab.er.24h, 12.5 MG PO 1800, (Reported) Entered as Reported by: KATHY RIZZO on 02/24/18949 Last Action: Reviewed Thurmond-3 Fatty Acids/Fish Oil (Thurmond 3 Fish Oil Softgel) 684 Mg-1,200 Mg Capsule.dr, 1 EACH PO 1800, (Reported) Entered as Reported by: RON REEVES on 07/11/221150 Last Action: Reviewed Potassium Chloride (Potassium Chloride) 20 Meq Tab.er.prt, 20 MEQ PO DAILY, (Reported) Entered as Reported by: KATHY RIZZO on 02/24/18949 Last Action: Reviewed Simvastatin (Simvastatin) 20 Mg Tablet, 20 MG PO 1800, (Reported) Entered as Reported by: KATHY RIZZO on 02/24/18949 Last Action: Reviewed Zinc Gluconate (Zinc) 50 Mg Tablet, 50 MG PO BID, (Reported) Entered as Reported by: RON REEVES on 07/11/221150 Last Action: Reviewed Discontinued Medications Cholecalciferol (Vitamin D3) (Vitamin D) 1,000 Unit Tablet, 1,000 UNIT PO DAILY, (Reported) Discontinued Reason: Duplicate Order Entered as Reported by: KATHY RIZZO on 02/24/18949 Last Action: Discontinued Hydrocodone/Acetaminophen (Hydrocodone-Acetamin 5-325 mg) 1 Each Tablet, 1 TAB PO Q6H PRN for PAIN-MODERATE (5-7) Discontinued Reason: No Longer Taking Prescribed by: RAMIN DAVIS on 09/11/20 1237 Last Action: Discontinued Levothyroxine Sodium (Levothyroxine Sodium) 100 Mcg Tablet, 100 MCG PO DAILY, (Reported) Discontinued Reason: No Longer Taking Entered as Reported by: KATHY RIZZO on 02/24/18949 Last Action: Discontinued Multivitamin (Men's Multi-Vitamin) 1 Each Tablet, 1 EACH PO DAILY, (Reported) Discontinued Reason: No Longer Taking Entered as Reported by: KATHY RIZZO on 02/24/18949 Last Action: Discontinued Thurmond 3 Polyunsat Fatty Acids (Fish Oil 1,000 mg Capsule) 1,000 Mg Cap, 1,000 MG PO DAILY, (Reported) Discontinued Reason: Duplicate Order Entered as Reported by: KATHY RIZZO on 02/24/18 2996 Last Action: Discontinued Past Qlueqye-Eejaff-Wuclkd Hx Patient Social History Tobacco Use?: No Smoking Status: Former Smoker Use of E-Cig and/or Vaping dev: No Substance use?: No Alcohol Use?: Yes (occasional) Alcohol type: Wine Alcohol Frequency: Once in a while Pt feels they are or have been: No Immunizations Up To Date Date of Influenza Vaccine: Apr 08, 2022 First/Initial COVID19 Vaccinat: 07/06/20 Second COVID19 Vaccination Otf: [id number] Tetanus Booster (TDap): Unknown PED Vaccines UTD: No Date of Pneumonia Vaccine: Apr 23, 2007 Seasonal Allergies Seasonal Allergies: No Current Status Advance Directives: No Communicates: Verbally Primary Language: Yemeni Preferred Spoken Language: Yemeni Is interpretation needed?: No Sensory deficits: Vision impairment Past Medical History Surgeries: Appendectomy, Orthopedic (back stimulator) High Cholesterol, Hypertension, Peripheral Vascular Sexually Transmitted Disease: No HIV/AIDS: No Hypothyroidsim Loss of Vision: Bilateral Recent Skin Changes Blood Disorders: No Adverse Reaction/Blood Tranf: No (N/A) Family Medical History Reviewed Nursing Family Hx Cancer (come type of cancer in mother, was not sure of diagnosis), Other Conditions/Hx (Denies FH of colon cancer, Chron's or UC) Review of Systems Constitutional: No chills, No fever Respiratory: No cough, No short of breath Cardiovascular: No chest pain, No palpitations Gastrointestinal: abdominal pain (LLQ), other (bright red blood in stool) Physical Exam Vital Signs Vital Signs - First Documented 07/11/22 03:52 Temp 36.8 Pulse 75 Resp 20 B/P (MAP) 133/67 (89) Pulse Ox 97 O2 Delivery Room Air Capillary Refill : Less Than 3 Seconds Height, Weight, BMI Height: 6'2.00" Weight: 236lbs. 0.0oz. [id number]; 28.65 BMI Method:Stated General Appearance: No Apparent Distress, WD/WN HEENT: PERRL/EOMI Respiratory: Chest Non Tender, Normal Breath Sounds, No Accessory Muscle Use Cardiovascular: Regular Rate, Rhythm, No Murmur Gastrointestinal: Normal Bowel Sounds, Soft, Tenderness Extremity: No Pedal Edema Neurologic/Psychiatric: Alert, Normal Mood/Affect Skin: Normal Color Comments NAME: THUY AGRAWAL [facility] REC#: [id number] PT STATUS: ADM Zoran : 1935 PHYSICIAN: RAMIN DAVIS MD ADMIT DATE: 07/11/22 Signed Date of Exam:07/11/22 CT ABDOMEN/PELVIS W CLINICAL INDICATION: Patient with abdominal pain and bloody stools. Patient's history of appendectomy, hernia repair. Back stimulator. EXAM: Axial CT scan of the abdomen performed with 80 mL of Omnipaque 350 IV contrast. Sagittal and coronal reformatted images are created. COMPARISON: CT scan of abdomen and pelvis without contrast dated 07/25/2020. FINDINGS: There is minimal atelectasis or scarring involving both lung bases. There are degenerative spurs involving bilateral acetabular regions. There is lower lumbar spine facet arthropathy. There are hypertrophic spurs involving the lower thoracic spine and lumbar spine. The liver, spleen, pancreas and gallbladder are unremarkable. Adrenal glands are unremarkable. There are small subcentimeter low-density areas involving the upper aspects of both kidneys. Largest one measures 9 mm on the right. These likely represent cysts. There is interval development of a 9 mm in greatest axial dimension stone within the distal left ureter/UVJ region. There is no left hydronephrosis or adjacent fat stranding. Otherwise, both kidneys are unremarkable with no hydronephrosis or mass. Bladder is predominantly decompressed with wall thickening which is nonspecific. Prominent prostate gland is seen measuring 5.8 cm in transverse dimensions. There is no intra-abdominal free air or free fluid. There is no significant lymphadenopathy. There is note of a small duodenal diverticulum involving the 3rd and 4th portion of the duodenum which is also seen on prior study. There is wall thickening involving the distal esophagus which is nonspecific. Stomach is decompressed. Small bowel shows no other significant abnormality. There is diverticulosis involving the sigmoid colon and descending colon with no CT evidence of diverticulitis. Previously seen diffuse wall thickening involving the colon has resolved. There is mild wall thickening involving the cecum is nonspecific. There are air-fluid levels seen throughout the colon with no dilated intestine seen. Appendectomy changes are noted. Extra abdominal and extrapelvic soft tissue structures are unremarkable. IMPRESSION: 1: There is interval development of an 9 mm stone within the distal left ureter/UVJ region. There is no hydronephrosis or adjacent fat stranding. Both kidneys show no other acute abnormality. 2: There are air-fluid levels seen throughout the colon with no significant colonic wall thickening. These findings are nonspecific. Mild colitis and/or diarrhea may be considered. Previously seen diffuse colonic wall thickening has resolved. 3: There is wall thickening involving the distal esophagus which is nonspecific. Esophagitis cannot be completely excluded. 4: There is bladder wall thickening, but the bladder has small amount of fluid within it. This finding may be related to contraction versus bladder outlet obstruction versus cystitis. Prostate gland is enlarged. I agree with [facility] report. Dictated by: Dictated on workstation # [id number] Dict: 07/11/22 0607 Trans: 07/11/22 1140 [facility] [id number] Interpreted by: HO MALONE MD Electronically signed by: HO MALONE MD 07/11/22 1140 Assessment/Plan Assessment and Plan GI bleed Abdominal pain General surgery has been consulted. Scope later today to evaluate for source of bleeding with Dr Hill. Hgb 13.3. Hold daily home aspirin. He has been typed and crossed incase of a drop in h/h, transfuse accordingly. Continue to monitor stools and vitals for signs of hypotension. Pain management as needed, pt seems comfortable at this time HTN HLD Vital signs are stable. Continue to monitor while source of bleeding is evaluated. Clinical Quality Measures DVT/VTE Risk/Contraindication: Contraindications-Pharm: Other *list below* Other: NATACHA Tellez DO 07/12/22 0051: History of Present Illness History of Present Illness Date Seen by a Provider: Jul 11, 2022 Time Seen by a Provider: 10:00 Allergies and Home Medications Allergies Coded Allergies: Sulfa (Sulfonamide Antibiotics) (Verified Allergy, Unknown, 02/24/18) aspirin (Verified Allergy, Unknown, 02/24/18) Patient Home Medication List Home Medication List Reviewed: Yes Aspirin (Aspirin EC) 81 Mg Tablet., 81 MG PO 1800, (Reported) Entered as Reported by: RON REEVES on 07/11/22 1151 Last Action: Reviewed Cholecalciferol (Vitamin D3) (Vitamin D3) 25 Mcg (1000 Unit) Tablet, 25 MCG PO BID, (Reported) Entered as Reported by: RON REEVES on 07/11/221150 Last Action: Reviewed Enalapril Maleate (Enalapril Maleate) 2.5 Mg Tablet, 2.5 MG PO DAILY, (Reported) Entered as Reported by: KATHY RIZZO on 02/24/18949 Last Action: Reviewed Furosemide (Furosemide) 20 Mg Tablet, 20 MG PO DAILY, (Reported) Entered as Reported by: KATHY RIZZO on 02/24/18949 Last Action: Reviewed Levothyroxine Sodium (Levothyroxine Sodium) 125 Mcg Tablet, 125 MCG PO DAILY, (Reported) Entered as Reported by: RON REEVES on 07/11/221150 Last Action: Reviewed Metoprolol Succinate (Metoprolol Succinate) 25 Mg Tab.er.24h, 12.5 MG PO 1800, (Reported) Entered as Reported by: KATHY RIZZO on 02/24/18949 Last Action: Reviewed Thurmond-3 Fatty Acids/Fish Oil (Thurmond 3 Fish Oil Softgel) 684 Mg-1,200 Mg Capsule.dr, 1 EACH PO 1800, (Reported) Entered as Reported by: RON REEVES on 07/11/221150 Last Action: Reviewed Potassium Chloride (Potassium Chloride) 20 Meq Tab.er.prt, 20 MEQ PO DAILY, (Reported) Entered as Reported by: KATHY RIZZO on 02/24/18949 Last Action: Reviewed Simvastatin (Simvastatin) 20 Mg Tablet, 20 MG PO 1800, (Reported) Entered as Reported by: KATHY RIZZO on 02/24/18949 Last Action: Reviewed Zinc Gluconate (Zinc) 50 Mg Tablet, 50 MG PO BID, (Reported) Entered as Reported by: RON REEVES on 07/11/221150 Last Action: Reviewed Discontinued Medications Cholecalciferol (Vitamin D3) (Vitamin D) 1,000 Unit Tablet, 1,000 UNIT PO DAILY, (Reported) Discontinued Reason: Duplicate Order Entered as Reported by: KATHY RIZZO on 02/24/18949 Last Action: Discontinued Hydrocodone/Acetaminophen (Hydrocodone-Acetamin 5-325 mg) 1 Each Tablet, 1 TAB PO Q6H PRN for PAIN-MODERATE (5-7) Discontinued Reason: No Longer Taking Prescribed by: RAMIN DAVIS on 09/11/20 1237 Last Action: Discontinued Levothyroxine Sodium (Levothyroxine Sodium) 100 Mcg Tablet, 100 MCG PO DAILY, (Reported) Discontinued Reason: No Longer Taking Entered as Reported by: KATHY RIZZO on 02/24/1850 Last Action: Discontinued Multivitamin (Men's Multi-Vitamin) 1 Each Tablet, 1 EACH PO DAILY, (Reported) Discontinued Reason: No Longer Taking Entered as Reported by: KATHY RIZZO on 02/24/1850 Last Action: Discontinued Thurmond 3 Polyunsat Fatty Acids (Fish Oil 1,000 mg Capsule) 1,000 Mg Cap, 1,000 MG PO DAILY, (Reported) Discontinued Reason: Duplicate Order Entered as Reported by: KATHY RIZZO on 02/24/18949 Last Action: Discontinued Past Dxurlis-Lfzxcp-Uajolp Hx Patient Social History Marrital Status: Employed/Student: retired Review of Systems Constitutional: see HPI Gastrointestinal: melena, other (bright red blood in stool) Physical Exam General Appearance: No Apparent Distress, WD/WN Eyes: Bilateral Eye Normal Inspection, Bilateral Eye PERRL, Bilateral Eye EOMI HEENT: PERRL/EOMI, Normal ENT Inspection, Pharynx Normal Neck: Full Range of Motion, Normal Inspection, Non Tender, Supple, Carotid Bruit Respiratory: Chest Non Tender, Lungs Clear, Normal Breath Sounds, No Accessory Muscle Use, No Respiratory Distress Cardiovascular: Regular Rate, Rhythm, No Edema, No Gallop, No JVD, No Murmur, Normal Peripheral Pulses Gastrointestinal: Normal Bowel Sounds, No Organomegaly, No Pulsatile Mass, Non Tender, Soft Back: Normal Inspection, No CVA Tenderness, No Vertebral Tenderness Extremity: Normal Capillary Refill, Normal Inspection, Normal Range of Motion, Non Tender, No Calf Tenderness, No Pedal Edema Neurologic/Psychiatric: Alert, Oriented x3, No Motor/Sensory Deficits, Normal Mood/Affect Skin: Normal Color, Warm/Dry Lymphatic: No Adenopathy Assessment/Plan Assessment and Plan GIB Await Dr Hill consult Problems: (1) GI bleed Status: Acute Qualifiers: Qualified Codes: K92.2 - Gastrointestinal hemorrhage, unspecified Admission Diagnosis Admission Status: Observation Supervisory-Addendum Brief Verification & Attestation Participated in pt care: history, MDM, physical Personally performed: exam, history, MDM, supervision of care Care discussed with: Medical Student Procedures: n/a Results interpretation: Verified all documentation Verification and Attestation of Medical Student E/M Service A medical student performed and documented this service in my presence. I reviewed and verified all information documented by the medical student and made modifications to such information, when appropriate. I personally performed the physical exam and medical decision making. Natacha Mims, Jul 12, 2022,05:20 ADA RYAN Jul 11, 2022 12:28 NATACHA MIMS DO Jul 12, 2022 05:21
[2022-07-11 18:28] LABS: HEMOGLOBIN 10.9 g/dL (13.3-17.7)
[2022-07-12 04:51] VITALS: BP 119/58
[2022-07-12 05:48] LABS: BASOPHILS % (AUTO) 0 % (0-10); EOSINOPHILS # (AUTO) 0.4 10^3/uL (0.0-0.3); EOSINOPHILS % (AUTO) 5 % (0-10); HEMATOCRIT 32 % (40-54); HEMOGLOBIN 10.8 g/dL (13.3-17.7); LYMPHOCYTES # (AUTO) 2.7 10^3/uL (1.0-4.0); LYMPHOCYTES % (AUTO) 39 % (12-44); MEAN CORPUSCULAR HEMOGLOBIN 30 pg (25-34); MEAN CORPUSCULAR HGB CONC 34 g/dL (32-36); MEAN CORPUSCULAR VOLUME 90 fL (80-99); MEAN PLATELET VOLUME 9.7 fL (9.0-12.2); MONOCYTES # (AUTO) 0.6 10^3/uL (0.0-1.0); MONOCYTES % (AUTO) 8 % (0-12); NEUTROPHILS # (AUTO) 3.4 10^3/uL (1.8-7.8); NEUTROPHILS % (AUTO) 48 % (42-75); PLATELET COUNT 141 10^3/uL (130-400); WHITE BLOOD COUNT 7.1 10^3/uL (4.3-11.0)
[2022-07-12 06:28] LABS: ALBUMIN 3.2 GM/DL (3.2-4.5); BILIRUBIN,TOTAL 0.8 MG/DL (0.1-1.0); CALCIUM 8.8 MG/DL (8.5-10.1); CREATININE SERUM 0.94 MG/DL (0.60-1.30); POTASSIUM 3.6 MMOL/L (3.6-5.0); TOTAL PROTEIN 5.4 GM/DL (6.4-8.2)
[2022-07-12 07:10] VITALS: BP 114/69
--- NOTE | 2022-07-12 08:00 | Progress Note - Surgery ---
ALANNAH LEIVA 07/12/22 0800: Subjective Date Seen by a Provider: Jul 12, 2022 Time Seen by a Provider: 05:43 Subjective/Events-last exam Pt was laying in be sleep before interview. Pt states that he is doing well. Pt's last bloody bowel movement was yesterday, afternoon. Pt states that yesterday evening he didn't have a bowel movement, but wiped which showed bright red blood and darker blood as well. Pt has had no other bleeding episodes since yesterday. Pt isn't in any pain currently, and is without any complaints. Review of Systems General: No Chills HEENT: No Head Aches Pulmonary: No Dyspnea, No Cough Cardiovascular: No: Chest Pain, Palpitations Gastrointestinal: Melena; No: Nausea, Vomiting Objective Exam Vital Signs Date Time Temp Pulse Resp B/P (MAP) Pulse Ox O2 Delivery O2 Flow Rate FiO2 07/12/22 07:10 36.9 62 18 114/69 (84) 98 Room Air 07/12/22 04:51 36.2 60 18 119/58 (78) 96 Room Air 07/12/22 01:00 60 07/11/22 23:01 36.6 64 18 136/60 (85) 98 Room Air 07/11/22 20:05 Room Air 07/11/22 19:28 36.4 62 18 121/55 (77) 97 Room Air 07/11/22 19:27 Room Air 07/11/22 19:00 70 07/11/22 15:26 36.4 58 20 112/55 (74) 99 Room Air 07/11/22 13:25 100 Room Air 07/11/22 12:38 55 07/11/22 11:42 36.4 57 18 125/58 (80) 100 Room Air I & O 07/12/22 07:00 Intake Total 1820 ml Balance 1820 ml Capillary Refill : Less Than 3 Seconds General Appearance: No Apparent Distress, WD/WN HEENT: PERRL/EOMI, Normal ENT Inspection, Pharynx Normal Neck: Full Range of Motion, Normal Inspection, Non Tender, Supple, Carotid Bruit Respiratory: Chest Non Tender, Lungs Clear, Normal Breath Sounds, No Accessory Muscle Use, No Respiratory Distress Cardiovascular: Regular Rate, Rhythm, No Edema, No Gallop, No JVD, No Murmur, Normal Peripheral Pulses Peripheral Pulses: 2+ Radial Pulses (R), 2+ Radial Pulses (L) Gastrointestinal: non tender, soft Extremity: Normal Capillary Refill, Normal Inspection, Normal Range of Motion, Non Tender, No Calf Tenderness, No Pedal Edema Neurologic/Psychiatric: Alert, Oriented x3, No Motor/Sensory Deficits, Normal Mood/Affect Skin: Normal Color, Warm/Dry Lymphatic: No Adenopathy Results Lab Laboratory Tests 07/11/22 12:24: Hemoglobin 11.0L, Hematocrit 33L 07/11/22 18:20: Hemoglobin 10.9L, Hematocrit 33L 07/12/22 05:28: Hemoglobin 10.8L, Hematocrit 32L, White Blood Count 7.1, Red Blood Count 3.59L, Mean Corpuscular Volume 90, Mean Corpuscular Hemoglobin 30, Mean Corpuscular Hemoglobin Concent 34, Red Cell Distribution Width 14.1, Platelet Count 141, Mean Platelet Volume 9.7, Immature Granulocyte % (Auto) 0, Neutrophils (%) (Auto) 48, Lymphocytes (%) (Auto) 39, Monocytes (%) (Auto) 8, Eosinophils (%) (Auto) 5, Basophils (%) (Auto) 0, Neutrophils # (Auto) 3.4, Lymphocytes # (Auto) 2.7, Monocytes # (Auto) 0.6, Eosinophils # (Auto) 0.4H, Basophils # (Auto) 0.0, Immature Granulocyte # (Auto) 0.0, Sodium Level 140, Potassium Level 3.6, Chloride Level 108H, Carbon Dioxide Level 24, Anion Gap 8, Blood Urea Nitrogen 12, Creatinine 0.94, Estimat Glomerular Filtration Rate 80, BUN/Creatinine Ratio 13, Glucose Level 99, Calcium Level 8.8, Corrected Calcium 9.4, Total Bilirubin 0.8, Aspartate Amino Transf (AST/SGOT) 17, Alanine Aminotransferase (ALT/SGPT) 17, Alkaline Phosphatase 53, Total Protein 5.4L, Albumin 3.2 Assessment/Plan Assessment/Plan Assessment/Plan Acute GI Bleed -lower Abdominal Pain-llq resolved Constipation Consider Clear liquid diet; if tolerates progress diet Follow hgb transfuse as needed. Will try supportive measures; f/u with Dr. Hill in 2-3 for colonoscopy Discussed possible causes Patient questions answered to his satisfaction Clinical Quality Measures DVT/VTE Risk/Contraindication: Contraindications-Pharm: Other *list below* Other: EMERSON Hazel DO 07/12/227: Subjective Subjective/Events-last exam Patient has not has any further bloody bowel movements. Hgb stable. Minimal lower abdominal discomfort. Denies n/v fever sweats chills shortness of breath or chest pain. Objective Exam General Appearance: No Apparent Distress, WD/WN HEENT: PERRL/EOMI, Normal ENT Inspection Neck: Normal Inspection, Non Tender Respiratory: Chest Non Tender, No Accessory Muscle Use, No Respiratory Distress Cardiovascular: Regular Rate, Rhythm, No JVD Gastrointestinal: soft, tenderness (minimal discomfort lower abdomen) Extremity: Non Tender, No Calf Tenderness Neurologic/Psychiatric: Alert, Oriented x3 Skin: Normal Color, Warm/Dry Lymphatic: No Adenopathy Assessment/Plan Assessment/Plan Assessment/Plan Acute GI Bleed -lower Abdominal Pain-improving Constipation Clear liquid diet;slowly advance F/u with Dr. Hill in 2-3 weeks for colonoscopy Discussed possible causes Since stable can dc home and have follow up outpatient Patient in agreement with plan. Supervisory-Addendum Brief Verification & Attestation Participated in pt care: history, MDM, physical Personally performed: exam, history, MDM, supervision of care Care discussed with: Medical Student Procedures: n/a Results interpretation: Verified all documentation Verification and Attestation of Medical Student E/M Service A medical student performed and documented this service in my presence. I reviewed and verified all information documented by the medical student and made modifications to such information, when appropriate. I personally performed the physical exam and medical decision making. Emerson Hill, Jul 12, 2022,22:47 ALANNAH LEIVA Jul 12, 2022 08:00 EMERSON HILL DO Jul 12, 2022 22:47
[2022-07-12] MEDS: DOCUSATE SODIUM 100 MG (COLACE) CAP PO SCH (09:31)
[2022-07-12] MEDS: SENNOSIDES 8.6 MG (SENOKOT) TAB PO SCH (09:31)
[2022-07-12] MEDS: PANTOPRAZOLE 40 MG (PROTONIX) VIAL IV SCH (09:31)
[2022-07-12 11:32] VITALS: BP 144/64
[2022-07-12] MEDS ORDERED: PANT40TA2 PO (11:36)
--- NOTE | 2022-07-12 11:37 | Discharge Summary ---
Diagnosis/Chief Complaint Date of Admission Jul 11, 2022 at 05:50 Date of Discharge Discharge Date: Jul 12, 2022 Discharge Diagnosis GI bleed Abdominal pain HTN HLD Reason Hospital Visit Discharge Summary Discharge Physical Examination Allergies: Coded Allergies: Sulfa (Sulfonamide Antibiotics) (Verified Allergy, Unknown, 02/24/18) aspirin (Verified Allergy, Unknown, 02/24/18) Vitals & I&Os Vital Signs Date Time Temp Pulse Resp B/P (MAP) Pulse Ox O2 Delivery O2 Flow Rate FiO2 07/12/22 13:49 07/12/22 12:49 62 07/12/22 11:32 36.1 18 97 Room Air General Appearance: Alert, Oriented X3, Cooperative Respiratory: Clear to Auscultation Cardiovascular: Regular Rate Psych/Mental Status: Mental Status NL Hospital Course Was the Problem List Reviewed?: Yes German Kinney is a pleasant 86y/o male with a past medical history of HTN, HLD, GERD who presented to the ER on 07/11 after having bright red bloody stools per rectum. In the ER he had bloody stools with a stable hemoglobin. HPI per Er "Patient here accompanied by his . reports the patient woke up this morning with abdominal pain and then had a bowel movement that she states was bright red blood. He has never had that before for. They elected to bring him here for further evaluation. reports that he did have a back stimulator placed several months ago. Its been several years since his last colonoscopy. Patient reports he woke up a few hours ago with lower abdominal discomfort and felt like he had to have diarrhea. Since then he is had 6 bowel movements that have all been bloody with darker blood. He reports constipation a few days ago and had to do a digital rectal disimpaction and then stool softeners and then he had a large bowel movement that was normal without blood. He has not had any blood in the interim until this morning. He has never had anything like this before. He is on a baby aspirin but otherwise not on blood thinners." HPI from 07/11 on the floor "German Kinney is an 86 y/o male with past medical hx of HTN, HLD, and GERD who presented to the ER on 07/11 after having several episode of bloody stools. 4 days ago he felt constipated and has to manually disimpact the stool at home. After this he began to use stool softeners at home and had more than normal BMs after that. At 1:30 AM he noticed a red and watery stool followed by several more episodes of this after. Total of 3 to 4 bloody BM before arrival to the ER. He denies any history of GI bleeds or colorectal cancer. He is not currently in pain but does describe some LLQ fullness. He denies abdominal distention." He was admitted to the 4th floor for observation and workup of GI bleed. On my visit with him 07/11 he had continued to have bloody stools that were dark and smaller in volume and number than before his arrival to the ER. He was given IV fluids and GI prophylaxis with pantoprazole. Ct scan of the abd/ pelvis was unrevealing for a source of bleeding, although diverticula were noted. He denied any abd pain or other concerns. He noted a feeling of distention but this was not appreciated on exam. Surgery was consulted and Mr. Kinney was seen by Dr. Hill on 07/11. A colonoscopy and EGD were not necessary at this time as his Hgb was stable and he was not hypotensive. Hgb did drop to 10.8 after fluids and this change is likely due to small amounts of blood per rectum and dilution from fluids. Pt was willing to follow up with Dr. Hill for outpatient scopes. Exam was relatively unchanged on 07/12 and he was ready to advance his diet and go home with follow up as an outpatient. Last BM was the afternoon of 07/11 with minimal amount of blood. Denied any pain or heavy bleeding. This is likely a diverticular bleed with his past scope findings of diverticulosis and clean scope w/o polyps or adenocarcinoma in 2018. Patient was discharged on 07/12 with follow up scheduled with Dr. Hill. Given clear instructions to remain on clear liquid diet on 07/12 then progress to soft bland diet on 07/13. Pantoprazole rx sent to his pharmacy. [facility] Labs (last 24 hrs) Laboratory Tests 07/11/22 04:07: White Blood Count 9.8, Red Blood Count 4.52, Hemoglobin 13.3, Hematocrit 41, Mean Corpuscular Volume 90, Mean Corpuscular Hemoglobin 29, Mean Corpuscular Hemoglobin Concent 33, Red Cell Distribution Width 13.9, Platelet Count 177, Mean Platelet Volume 9.7, Immature Granulocyte % (Auto) 0, Neutrophils (%) (Auto) 54, Lymphocytes (%) (Auto) 34, Monocytes (%) (Auto) 8, Eosinophils (%) (Auto) 4, Basophils (%) (Auto) 1, Neutrophils # (Auto) 5.3, Lymphocytes # (Auto) 3.3, Monocytes # (Auto) 0.8, Eosinophils # (Auto) 0.4H, Basophils # (Auto) 0.1, Immature Granulocyte # (Auto) 0.0, Sodium Level 141, Potassium Level 4.2, Chloride Level 107, Carbon Dioxide Level 23, Anion Gap 11, Blood Urea Nitrogen 19H, Creatinine 1.05, Estimat Glomerular Filtration Rate 70, BUN/Creatinine Ratio 18, Glucose Level 125H, Calcium Level 9.2, Corrected Calcium 9.3, Total Bilirubin 0.5, Aspartate Amino Transf (AST/SGOT) 18, Alanine Aminotransferase (ALT/SGPT) 19, Alkaline Phosphatase 72, C-Reactive Protein High Sensitivity 0.55H, Total Protein 6.6, Albumin 3.9 07/11/22 12:24: Hemoglobin 11.0L, Hematocrit 33L 07/11/22 18:20: Hemoglobin 10.9L, Hematocrit 33L 07/12/22 05:28: White Blood Count 7.1, Red Blood Count 3.59L, Hemoglobin 10.8L, Hematocrit 32L, Mean Corpuscular Volume 90, Mean Corpuscular Hemoglobin 30, Mean Corpuscular Hemoglobin Concent 34, Red Cell Distribution Width 14.1, Platelet Count 141, Mean Platelet Volume 9.7, Immature Granulocyte % (Auto) 0, Neutrophils (%) (Auto) 48, Lymphocytes (%) (Auto) 39, Monocytes (%) (Auto) 8, Eosinophils (%) (Auto) 5, Basophils (%) (Auto) 0, Neutrophils # (Auto) 3.4, Lymphocytes # (Auto) 2.7, Monocytes # (Auto) 0.6, Eosinophils # (Auto) 0.4H, Basophils # (Auto) 0.0, Immature Granulocyte # (Auto) 0.0, Sodium Level 140, Potassium Level 3.6, Chloride Level 108H, Carbon Dioxide Level 24, Anion Gap 8, Blood Urea Nitrogen 12, Creatinine 0.94, Estimat Glomerular Filtration Rate 80, BUN/Creatinine Ratio 13, Glucose Level 99, Calcium Level 8.8, Corrected Calcium 9.4, Total Bilirubin 0.8, Aspartate Amino Transf (AST/SGOT) 17, Alanine Aminotransferase (ALT/SGPT) 17, Alkaline Phosphatase 53, Total Protein 5.4L, Albumin 3.2 Pending Labs Laboratory Tests 07/11/22 04:07: White Blood Count 9.8, Red Blood Count 4.52, Hemoglobin 13.3, Hematocrit 41, Mean Corpuscular Volume 90, Mean Corpuscular Hemoglobin 29, Mean Corpuscular Hemoglobin Concent 33, Red Cell Distribution Width 13.9, Platelet Count 177, Mean Platelet Volume 9.7, Immature Granulocyte % (Auto) 0, Neutrophils (%) (Auto) 54, Lymphocytes (%) (Auto) 34, Monocytes (%) (Auto) 8, Eosinophils (%) (Auto) 4, Basophils (%) (Auto) 1, Neutrophils # (Auto) 5.3, Lymphocytes # (Auto) 3.3, Monocytes # (Auto) 0.8, Eosinophils # (Auto) 0.4, Basophils # (Auto) 0.1, Immature Granulocyte # (Auto) 0.0, Sodium Level 141, Potassium Level 4.2, Chloride Level 107, Carbon Dioxide Level 23, Anion Gap 11, Blood Urea Nitrogen 19, Creatinine 1.05, Estimat Glomerular Filtration Rate 70, BUN/Creatinine Ratio 18, Glucose Level 125, Calcium Level 9.2, Corrected Calcium 9.3, Total Bilirubin 0.5, Aspartate Amino Transf (AST/SGOT) 18, Alanine Aminotransferase (ALT/SGPT) 19, Alkaline Phosphatase 72, C-Reactive Protein High Sensitivity 0.55, Total Protein 6.6, Albumin 3.9 07/11/22 12:24: Hemoglobin 11.0, Hematocrit 33 07/11/22 18:20: Hemoglobin 10.9, Hematocrit 33 07/12/22 05:28: White Blood Count 7.1, Red Blood Count 3.59, Hemoglobin 10.8, Hematocrit 32, Mean Corpuscular Volume 90, Mean Corpuscular Hemoglobin 30, Mean Corpuscular Hemoglobin Concent 34, Red Cell Distribution Width 14.1, Platelet Count 141, Mean Platelet Volume 9.7, Immature Granulocyte % (Auto) 0, Neutrophils (%) (Auto) 48, Lymphocytes (%) (Auto) 39, Monocytes (%) (Auto) 8, Eosinophils (%) (Auto) 5, Basophils (%) (Auto) 0, Neutrophils # (Auto) 3.4, Lymphocytes # (Auto) 2.7, Monocytes # (Auto) 0.6, Eosinophils # (Auto) 0.4, Basophils # (Auto) 0.0, Immature Granulocyte # (Auto) 0.0, Sodium Level 140, Potassium Level 3.6, Chloride Level 108, Carbon Dioxide Level 24, Anion Gap 8, Blood Urea Nitrogen 12, Creatinine 0.94, Estimat Glomerular Filtration Rate 80, BUN/Creatinine Ratio 13, Glucose Level 99, Calcium Level 8.8, Corrected Calcium 9.4, Total Bilirubin 0.8, Aspartate Amino Transf (AST/SGOT) 17, Alanine Aminotransferase (ALT/SGPT) 17, Alkaline Phosphatase 53, Total Protein 5.4, Albumin 3.2 Discharge Home Medications: Active Scripts Active Protonix (Pantoprazole Sodium) 40 Mg Tablet.dr 40 Mg PO DAILY Reported Secretary 3 Fish Oil Softgel (Secretary-3 Fatty Acids/Fish Oil) 684 Mg-1,200 Mg Capsule.dr 1 Each PO 1800 Zinc (Zinc Gluconate) 50 Mg Tablet 50 Mg PO BID Vitamin D3 (Cholecalciferol (Vitamin D3)) 25 Mcg (1000 Unit) Tablet 25 Mcg PO BID Levothyroxine Sodium 125 Mcg Tablet 125 Mcg PO DAILY Potassium Chloride 20 Meq Tab.er.prt 20 Meq PO DAILY Enalapril Maleate 2.5 Mg Tablet 2.5 Mg PO DAILY Simvastatin 20 Mg Tablet 20 Mg PO 1800 Metoprolol Succinate 25 Mg Tab.er.24h 12.5 Mg PO 1800 TAKES OF A 25MG Furosemide 20 Mg Tablet 20 Mg PO DAILY Instructions to patient/family Please see electronic discharge instructions given to patient. Diagnosis/Problems Diagnosis/Problems (1) GI bleed Status: Acute Qualifiers: Qualified Codes: K92.2 - Gastrointestinal hemorrhage, unspecified Clinical Quality Measures DVT/VTE Risk/Contraindication: Contraindications-Pharm: Other *list below* Other: FELY Tellez DO Jul 12, 2022 11:37
--- NOTE | 2022-07-12 12:07 | Progress Note ---
[facility] 07/12/22 1207: Progress Note German Kinney is a pleasant 86y/o male with a past medical history of HTN, HLD, GERD who presented to the ER on 07/11 after having bright red bloody stools per rectum. In the ER he had bloody stools with a stable hemoglobin. HPI per Er "Patient here accompanied by his . reports the patient woke up this morning with abdominal pain and then had a bowel movement that she states was bright red blood. He has never had that before for. They elected to bring him here for further evaluation. reports that he did have a back stimulator placed several months ago. Its been several years since his last colonoscopy. Patient reports he woke up a few hours ago with lower abdominal discomfort and felt like he had to have diarrhea. Since then he is had 6 bowel movements that have all been bloody with darker blood. He reports constipation a few days ago and had to do a digital rectal disimpaction and then stool softeners and then he had a large bowel movement that was normal without blood. He has not had any blood in the interim until this morning. He has never had anything like this before. He is on a baby aspirin but otherwise not on blood thinners." HPI from 07/11 on the floor "German Kinney is an 86 y/o male with past medical hx of HTN, HLD, and GERD who presented to the ER on 07/11 after having several episode of bloody stools. 4 days ago he felt constipated and has to manually disimpact the stool at home. After this he began to use stool softeners at home and had more than normal BMs after that. At 1:30 AM he noticed a red and watery stool followed by several more episodes of this after. Total of 3 to 4 bloody BM before arrival to the ER. He denies any history of GI bleeds or colorectal cancer. He is not currently in pain but does describe some LLQ fullness. He denies abdominal distention." He was admitted to the 4th floor for observation and workup of GI bleed. On my visit with him 07/11 he had continued to have bloody stools that were dark and smaller in volume and number than before his arrival to the ER. He was given IV fluids and GI prophylaxis with pantoprazole. Ct scan of the abd/ pelvis was unrevealing for a source of bleeding, although diverticula were noted. He denied any abd pain or other concerns. He noted a feeling of distention but this was not appreciated on exam. Surgery was consulted and Mr. Kinney was seen by Dr. Hill on 07/11. A colonoscopy and EGD were not necessary at this time as his Hgb was stable and he was not hypotensive. Hgb did drop to 10.8 after fluids and this change is likely due to small amounts of blood per rectum and dilution from fluids. Pt was willing to follow up with Dr. Hill for outpatient scopes. Exam was relatively unchanged on 07/12 and he was ready to advance his diet and go home with follow up as an outpatient. Last BM was the afternoon of 07/11 with minimal amount of blood. Denied any pain or heavy bleeding. This is likely a diverticular bleed with his past scope findings of diverticulosis and clean scope w/o polyps or adenocarcinoma in 2018. Patient was discharged on 07/12 with follow up scheduled with Dr. Hill. Given c lear instructions to remain on clear liquid diet on 07/12 then progress to soft bland diet on 07/13. Pantoprazole rx sent to his pharmacy. NATACHA MIMS DO 07/12/22 1703: Supervisory-Addendum Brief Verification & Attestation Participated in pt care: history, MDM, physical Personally performed: exam, history, MDM, supervision of care Care discussed with: Medical Student Procedures: n/a Results interpretation: Verified all documentation Verification and Attestation of Medical Student E/M Service A medical student performed and documented this service in my presence. I reviewed and verified all information documented by the medical student and made modifications to such information, when appropriate. I personally performed the physical exam and medical decision making. Natacha Mims, Jul 12, 2022,17:03 [facility] Jul 12, 2022 12:07 NATACHA MIMS DO Jul 12, 2022 17:03
== END 2022-07-12 11:35 | disposition home or self-care (01) ==
LOC: EDUNIT# 03:45 → ER 03:48 → UNDOADMOB 05:50 → 4TH 05:50 → UNDODISOB 07-12 11:35
PROVIDERS: ADMIT Internal Medicine; ATTEND Internal Medicine
DX: K92.1 Melena (principal); I10 Essential (primary) hypertension; E78.5 Hyperlipidemia, unspecified; K59.00 Constipation, unspecified; R73.9 Hyperglycemia, unspecified
CPT/HCPCS: 74177; 80053 ×2; 85014; 85018; 85025 ×2; 86141; 86850; 86900; 86901; 86920; 87015; 87045; 87046; 87899; 96375; 96376; 99283; G0378; 36415

== ENCOUNTER 2022-07-16 08:15 | Day surgery (SDC) | payer MEDICARE ==
[~2022-07-16] VITALS: Ht 182.8 cm; Wt 98.5 kg
[~2022-07-16 08:15] MED LIST changes: +ASPI-1238 PO; +CHOL-34 PO; +LEVO125T6 PO; +OMEG1CAP24 PO; +PANT40TA2 PO; +ZINC50TA11 PO
[2022-07-16] MEDS ORDERED: LACTATED RINGERS 1,000 ML IV STA (08:30)
[2022-07-16] MEDS ORDERED: HURRICAINE EXT TUBE (BENZOCAINE) XX PRN (08:30)
[2022-07-16] MEDS ORDERED: HURRICAINE EXT TUBE (BENZOCAINE) ONE (08:32)
[2022-07-16] MEDS ORDERED: LACTATED RINGERS 1,000 ML IV ONE (08:32)
[2022-07-16 08:58] VITALS: BP 143/75
--- NOTE | 2022-07-16 09:09 | Progress Note-Pre Operative ---
Pre-Operative Progress Note Date of Available H&P: Jul 15, 2022 Date H&P Reviewed: Jul 16, 2022 Time H&P Reviewed: 09:08 History & Physical: H&P Reviewed, Patient Examed, No changes noted Pre-Operative Diagnosis: SUZY Taylor DO Jul 16, 2022 09:09
[2022-07-16] MEDS ORDERED: PROPOFOL INJECTION 50 ML IV ONE (09:47)
[2022-07-16 10:25] VITALS: BP 79/50
--- NOTE | 2022-07-16 10:29 | Discharge Inst-Simple/Standard ---
Discharge Inst-Standard Patient Instructions/Follow Up Plan of Care/Instructions/FU: See Sergio 07/22/22; Friday Afternoon Activity as Tolerated: Yes Discharge Diet: No Restrictions SUZY CANCHOLA DO Jul 16, 2022 10:29
[2022-07-16 10:30] VITALS: BP 84/53
[2022-07-16 10:35] VITALS: BP 95/53
[2022-07-16 11:05] VITALS: BP 128/63
[2022-07-16 11:11] VITALS: BP 128/63
--- NOTE | 2022-07-16 14:49 | Anesthesia-General Post-Op ---
MAC Patient Condition Mental Status/LOC: Same as Preop Cardiovascular: Satisfactory Nausea/Vomiting: Absent Respiratory: Satisfactory Pain: Controlled Complications: Absent Post Op Complications Complications None Follow Up Care/Instructions Patient Instructions None needed. Anesthesiology Discharge Order Discharge Order Patient is doing well, no complaints, stable vital signs, no apparent adverse anesthesia problems. No complications reported per nursing. NICOLE WILLIAMSON CRNA Jul 16, 2022 14:49
--- NOTE | 2022-07-16 18:31 | OPERATIVE REPORT ---
DATE OF SERVICE: 07/16/2022 PREOPERATIVE DIAGNOSIS: Melena. POSTOPERATIVE DIAGNOSES: Duodenitis, small hiatal hernia, cecal mass, diverticulosis. PROCEDURE: EGD with biopsies, colonoscopy with cold biopsies of a cecal mass and Nayely inking. SURGEON: Suzy Hill DO. ANESTHESIA: Per GEAR TECHNICIAN. ESTIMATED BLOOD LOSS: Scant. COMPLICATIONS: None. INDICATIONS: The patient is an 86-year-old male with recent admission for blood per rectum. He understands risks and benefits of the procedures and wishes to proceed. Consent was signed and in chart. DESCRIPTION OF PROCEDURE: The patient was taken to the endoscopy suite, placed in left lateral recumbent position. Timeout was performed. Scope inserted in the mouth, down the esophagus, stomach and into the duodenum without difficulty. Slight erythematous changes in the duodenum. Biopsy of the duodenum was obtained. Scope was slowly retracted back. No polyps, masses or ulcerations. Scope was in the stomach and further insufflated. Biopsy of the antrum was obtained. No polyps, masses or ulcerations. Scope was retroflexed noting small hiatal hernia, noting no other pathology. It was returned to its normal position, slowly withdrawn until the distal esophagus, biopsy of the GE junction was obtained. Scope was retracted back until completely removed, noting no other pathology. Digital rectal exam was performed. No palpable polyps, masses or ulcerations. Scope was inserted in the rectum and advanced all the way to the cecum with minimal difficulty. Prep was adequate. In the cecum, cecal mass was present. Cold biopsies were obtained. Just distal to this area 1 mL of Nayely ink was injected in two locations for a total of 2 mL used. The scope was then continuously retracted back. No polyps, masses, ulcerations within the ascending, transverse, descending and sigmoid colon. Winkler diverticulosis present. Once in the rectum, scope was retroflexed noting no other pathology. Scope was returned to its normal position and slowly withdrawn until completely removed. The patient tolerated the procedure well without any complications, taken to recovery room in stable condition. RECOMMENDATIONS: The patient will need a repeat colonoscopy in one year after resection. We will follow up on pathology results. The patient will need a right colon resection, but also need further workup with CT scan chest, abdomen, pelvis and labs. Job ID: [id number] DocumentID: [id number] Dictated Date: 07/16/2022 10:36:59 Telex Operator Date: 07/16/2022 18:29:00 Dictated By: SUZY HILL DO
== END 2022-07-16 11:32 | disposition home or self-care (01) ==
LOC: ENDO 08:15
PROVIDERS: ATTEND Surgery
DX: C18.0 Malignant neoplasm of cecum (principal); K29.81 Duodenitis with bleeding; K44.9 Diaphragmatic hernia without obstruction or gangrene; K57.31 Diverticulosis of large intestine without perforation or abscess with bleeding; K31.89 Other diseases of stomach and duodenum; E66.9 Obesity, unspecified; Z87.891 Personal history of nicotine dependence; Z68.29 Body mass index [BMI] 29.0-29.9, adult

== ENCOUNTER → 2022-07-26 | Outpatient (CLI) | payer MEDICARE | LOC: CARD 08:20 | PROVIDERS: ATTEND Physician Assistant | DX: I08.0 Rheumatic disorders of both mitral and aortic valves (principal); I10 Essential (primary) hypertension; I25.10 Atherosclerotic heart disease of native coronary artery without angina pectoris | CPT/HCPCS: 93306 ==

== ENCOUNTER → 2023-04-02 | Outpatient (CLI) | payer MEDICARE ==
[~2023-04-02] MED LIST changes: +REGADENOSON 0.4 MG/5 ML SYR IV ONE
[2023-04-02] MEDS: CATHETER FLUSH 10 ML SYR IVP PRN ×2 (12:02→13:10)
[2023-04-02 13:07] VITALS: BP 126/83
--- NOTE | 2023-04-02 15:02 | Cardiology Stress Test Report ---
Stress Test Report Date of Procedure/Referring: Date of Procedure: Apr 02, 2023 PCP Jorge Coyle MD Admitting Physician Admitting Physician: Attending Physician: Shena Mcqueen MD Baseline Heart Rate: 61 Baseline Blood Pressure: Blood Pressure Systolic: 126 Blood Pressure Diastolic: 83 Baseline Vitals Vital Signs Date Time Temp Pulse Resp B/P (MAP) Pulse Ox O2 Delivery O2 Flow Rate FiO2 04/02/23 13:07 55 126/83 (97) 100 Baseline EKG: Baseline EKG: RBBB Summary After explaining the procedure to the patient, he signed a consent and then brought to the stress nuclear laboratory. Patient received 0.4 mg Lexiscan for stress test, ECG, heart rate and blood pressure were monitored continuously. Resting and stress dose of radio tracer were injected, imaging was acquired and reviewed in short axis, horizontal long axis and vertical long axis views. TID: 0.96 SSS: 5 SDS: 4 EF: 54 Patient tolerated Lexiscan well Baseline right bundle branch block persisted during test Diaphragmatic attenuation with reversible ischemia involving the inferior wall and inferolateral wall Normal left ventricular size, ejection fraction 54% Copy Copies To 1: JORGE COYLE MD, BASHAR J MD Apr 02, 2023 15:02
== END ==
LOC: CARD 11:45
PROVIDERS: ATTEND Internal Medicine Cardiovascular Disease
DX: I25.10 Atherosclerotic heart disease of native coronary artery without angina pectoris (principal); I10 Essential (primary) hypertension
CPT/HCPCS: 78452; 93017; A9502